=== PATIENT | female | born 1980 | race Caucasian/White ===

== ENCOUNTER → 2023-12-24 | Emergency (ER) | payer OTHER ==
[~2023-12-24] MED LIST: LIDOCAINE 1% 20 ML MDV ONE; LORAZEPAM 1 MG TABLET ONE; NA CHLORIDE 0.9% 1,000 ML ONE
--- OUTSIDE RECORDS SUMMARY | 2023-12-24 01:13 | XMS REPORT | Continuity of Care Document ---
Author Name Unknown Address [address] [facility]. [address] [place] [address] [facility] Address [address] [facility] [address] [place] [address] Care Team Providers Care Level Vial Inside Grinder Name Role Phone Megan Mercado Attending Clinician Unavailable GC_GCEXP_Monis_K Attending Clinician Unavailable Steven Jaramillo Attending Clinician Unavailab DR CORNELIUS Shen Attending Clinician UnavailBRITTA Jordan Attending Clinician Unavailable DAMARIS BEAULIEU Attending Clinician Unavailable GC_GCEXP_Monis_K Admitting Clinician Unavailable Ananda Cheek Admitting Clinician Unavailable DR CORNELIUS FISCHER Admitting Clinician UnavailBRITTA Jordan Admitting Clinician Unavailable DAMARIS BEAULIEU Admitting Clinician Unavailable Payers Payer Name Policy Type Policy Number Effective Date Expirati on Date Source Problems Condition Name Condition Details Condition Category Status Onset Date Resolution Date Last Treatment Date Treating Clinician Comments Source [id number] Mixed hyperlipid emia Problem [facility] [id number] Smokes 1 pack of cigarettes per day Problem [facility] [id number] Moderate major depression Problem [facility] [id number] Bipolar 2 disorder Problem [facility] [id number] Symptomati c cholelithi asis Problem [facility] [id number] COPD without exacerbati on Problem [facility] [id number] Other chronic pain Problem [facility] Allergies, Adverse Reactions, Alerts Allergy Name Allergy Type Status Severity Reaction(s) Onset Date Inactive Date Treating Clinician Comments Source No Known Allergie s DA Active U 05-17 00:00: 00 [facility] hydrocod one hydrocod one Active Unknown [facility] Social History Social Habit Start Date Stop Date Quantity Comments Source History of Tobacco Use Current Smoker [facility] Sex Assigned At [facility] Smoking Status Start Date Stop Date Source Current Smoker 2023-12-17 00:00:00 [facility] Medications Ordered Medication Name Filled Medication Name Start Date Stop Date Current Medication? Ordering Clinician Indication Dosage Frequency Signature (SIG) Comments Components Source predniSONE 10 MG predniSONE 10 MG 12-17 00:00: 00 No 1{table t} QD predniSONE 10 MG Naproxen 500 MG Naproxen 500 MG 12-17 00:00: 00 No BID Naproxen 500 MG Atorvastati n Calcium 10 MG Atorvastati n Calcium 10 MG No Atorvastat in Calcium 10 MG Propranolol HCl 10 MG Propranolol HCl 10 MG No 1{table t} QD Propranolo l HCl 10 MG tiZANidine HCl 4 MG tiZANidine HCl 4 MG No tiZANidine HCl 4 MG Mirtazapine 30 MG Mirtazapine 30 MG No Mirtazapin e 30 MG Sertraline HCl 50 MG Sertraline HCl 50 MG No Sertraline HCl 50 MG Ventolin HFA 108 (90 Base) MCG/ACT Ventolin HFA 108 (90 Base) MCG/ACT No Ventolin HFA 108 (90 Base) MCG/ACT Xarelto 20 MG Xarelto 20 MG No Xarelto 20 MG Mirtazapine 30 MG Mirtazapine 30 MG No Mirtazapin e 30 MG hydroCHLORO thiazide 12.5 MG hydroCHLORO thiazide 12.5 MG No hydroCHLOR Othiazide 12.5 MG Sertraline HCl 50 MG Sertraline HCl 50 MG No Sertraline HCl 50 MG OXcarbazepi ne 300 MG OXcarbazepi ne 300 MG No OXcarbazep ine 300 MG Atorvastati n Calcium 10 MG Atorvastati n Calcium 10 MG No Atorvastat in Calcium 10 MG Ventolin HFA 108 (90 Base) MCG/ACT Ventolin HFA 108 (90 Base) MCG/ACT No Ventolin HFA 108 (90 Base) MCG/ACT tiZANidine HCl 4 MG tiZANidine HCl 4 MG No tiZANidine HCl 4 MG Lidocaine 5 % Lidocaine 5 % No Lidocaine 5 % Xarelto 20 MG Xarelto 20 MG No Xarelto 20 MG Mirtazapine 30 MG Mirtazapine 30 MG No Mirtazapin e 30 MG hydroCHLORO thiazide 12.5 MG hydroCHLORO thiazide 12.5 MG No hydroCHLOR Othiazide 12.5 MG Sertraline HCl 50 MG Sertraline HCl 50 MG No Sertraline HCl 50 MG OXcarbazepi ne 300 MG OXcarbazepi ne 300 MG No OXcarbazep ine 300 MG Atorvastati n Calcium 10 MG Atorvastati n Calcium 10 MG No Atorvastat in Calcium 10 MG Ventolin HFA 108 (90 Base) MCG/ACT Ventolin HFA 108 (90 Base) MCG/ACT No Ventolin HFA 108 (90 Base) MCG/ACT tiZANidine HCl 4 MG tiZANidine HCl 4 MG No tiZANidine HCl 4 MG Lidocaine 5 % Lidocaine 5 % No Lidocaine 5 % Xarelto 20 MG Xarelto 20 MG No Xarelto 20 MG Mirtazapine 30 MG Mirtazapine 30 MG No Mirtazapin e 30 MG hydroCHLORO thiazide 12.5 MG hydroCHLORO thiazide 12.5 MG No hydroCHLOR Othiazide 12.5 MG Sertraline HCl 50 MG Sertraline HCl 50 MG No Sertraline HCl 50 MG OXcarbazepi ne 300 MG OXcarbazepi ne 300 MG No OXcarbazep ine 300 MG Atorvastati n Calcium 10 MG Atorvastati n Calcium 10 MG No Atorvastat in Calcium 10 MG Ventolin HFA 108 (90 Base) MCG/ACT Ventolin HFA 108 (90 Base) MCG/ACT No Ventolin HFA 108 (90 Base) MCG/ACT tiZANidine HCl 4 MG tiZANidine HCl 4 MG No tiZANidine HCl 4 MG Lidocaine 5 % Lidocaine 5 % No Lidocaine 5 % Xarelto 20 MG Xarelto 20 MG No Xarelto 20 MG Mirtazapine 30 MG Mirtazapine 30 MG No Mirtazapin e 30 MG hydroCHLORO thiazide 12.5 MG hydroCHLORO thiazide 12.5 MG No hydroCHLOR Othiazide 12.5 MG Sertraline HCl 50 MG Sertraline HCl 50 MG No Sertraline HCl 50 MG OXcarbazepi ne 300 MG OXcarbazepi ne 300 MG No OXcarbazep ine 300 MG Atorvastati n Calcium 10 MG Atorvastati n Calcium 10 MG No Atorvastat in Calcium 10 MG Ventolin HFA 108 (90 Base) MCG/ACT Ventolin HFA 108 (90 Base) MCG/ACT No Ventolin HFA 108 (90 Base) MCG/ACT tiZANidine HCl 4 MG tiZANidine HCl 4 MG No tiZANidine HCl 4 MG Lidocaine 5 % Lidocaine 5 % No Lidocaine 5 % Xarelto 20 MG Xarelto 20 MG No Xarelto 20 MG Lidocaine 5 % Lidocaine 5 % No Lidocaine 5 % tiZANidine HCl 4 MG tiZANidine HCl 4 MG No tiZANidine HCl 4 MG hydroCHLORO thiazide 12.5 MG hydroCHLORO thiazide 12.5 MG No hydroCHLOR Othiazide 12.5 MG Ventolin HFA 108 (90 Base) MCG/ACT Ventolin HFA 108 (90 Base) MCG/ACT No Ventolin HFA 108 (90 Base) MCG/ACT Xarelto 20 MG Xarelto 20 MG No Xarelto 20 MG OXcarbazepi ne 300 MG OXcarbazepi ne 300 MG No OXcarbazep ine 300 MG Sertraline HCl 50 MG Sertraline HCl 50 MG No Sertraline HCl 50 MG Mirtazapine 30 MG Mirtazapine 30 MG No Mirtazapin e 30 MG Atorvastati n Calcium 10 MG Atorvastati n Calcium 10 MG No Atorvastat in Calcium 10 MG Lidocaine 5 % Lidocaine 5 % No Lidocaine 5 % tiZANidine HCl 4 MG tiZANidine HCl 4 MG No tiZANidine HCl 4 MG hydroCHLORO thiazide 12.5 MG hydroCHLORO thiazide 12.5 MG No hydroCHLOR Othiazide 12.5 MG Ventolin HFA 108 (90 Base) MCG/ACT Ventolin HFA 108 (90 Base) MCG/ACT No Ventolin HFA 108 (90 Base) MCG/ACT Xarelto 20 MG Xarelto 20 MG No Xarelto 20 MG OXcarbazepi ne 300 MG OXcarbazepi ne 300 MG No OXcarbazep ine 300 MG Sertraline HCl 50 MG Sertraline HCl 50 MG No Sertraline HCl 50 MG Mirtazapine 30 MG Mirtazapine 30 MG No Mirtazapin e 30 MG Atorvastati n Calcium 10 MG Atorvastati n Calcium 10 MG No Atorvastat in Calcium 10 MG Lidocaine 5 % Lidocaine 5 % No Lidocaine 5 % tiZANidine HCl 4 MG tiZANidine HCl 4 MG No tiZANidine HCl 4 MG hydroCHLORO thiazide 12.5 MG hydroCHLORO thiazide 12.5 MG No hydroCHLOR Othiazide 12.5 MG Ventolin HFA 108 (90 Base) MCG/ACT Ventolin HFA 108 (90 Base) MCG/ACT No Ventolin HFA 108 (90 Base) MCG/ACT Xarelto 20 MG Xarelto 20 MG No Xarelto 20 MG OXcarbazepi ne 300 MG OXcarbazepi ne 300 MG No OXcarbazep ine 300 MG Sertraline HCl 50 MG Sertraline HCl 50 MG No Sertraline HCl 50 MG Mirtazapine 30 MG Mirtazapine 30 MG No Mirtazapin e 30 MG Atorvastati n Calcium 10 MG Atorvastati n Calcium 10 MG No Atorvastat in Calcium 10 MG Lidocaine 5 % Lidocaine 5 % No Lidocaine 5 % tiZANidine HCl 4 MG tiZANidine HCl 4 MG No tiZANidine HCl 4 MG hydroCHLORO thiazide 12.5 MG hydroCHLORO thiazide 12.5 MG No hydroCHLOR Othiazide 12.5 MG Ventolin HFA 108 (90 Base) MCG/ACT Ventolin HFA 108 (90 Base) MCG/ACT No Ventolin HFA 108 (90 Base) MCG/ACT Xarelto 20 MG Xarelto 20 MG No Xarelto 20 MG OXcarbazepi ne 300 MG OXcarbazepi ne 300 MG No OXcarbazep ine 300 MG Sertraline HCl 50 MG Sertraline HCl 50 MG No Sertraline HCl 50 MG Mirtazapine 30 MG Mirtazapine 30 MG No Mirtazapin e 30 MG Atorvastati n Calcium 10 MG Atorvastati n Calcium 10 MG No Atorvastat in Calcium 10 MG hydroCHLORO thiazide 12.5 MG hydroCHLORO thiazide 12.5 MG No hydroCHLOR Othiazide 12.5 MG OXcarbazepi ne 300 MG OXcarbazepi ne 300 MG No OXcarbazep ine 300 MG Immunizations Ordered Immunization Name Filled Immunization Name Date Status Comments Source Fluarix (IIV4) - SDS - 0.5mL Fluarix (IIV4) - SDS - 0.5mL Unknown Completed [facility] Fluarix (IIV4) - SDS - 0.5mL Fluarix (IIV4) - SDS - 0.5mL Unknown Completed [facility] Fluarix (IIV4) - SDS - 0.5mL Fluarix (IIV4) - SDS - 0.5mL Unknown Completed [facility] Fluarix (IIV4) - SDS - 0.5mL Fluarix (IIV4) - SDS - 0.5mL Unknown Completed [facility] Fluarix (IIV4) - SDS - 0.5mL Fluarix (IIV4) - SDS - 0.5mL Unknown Completed [facility] Fluarix (IIV4) - SDS - 0.5mL Fluarix (IIV4) - SDS - 0.5mL Unknown Completed [facility] Fluarix (IIV4) - SDS - 0.5mL Fluarix (IIV4) - SDS - 0.5mL Unknown Completed [facility] Fluarix (IIV4) - SDS - 0.5mL Fluarix (IIV4) - SDS - 0.5mL Unknown Completed [facility] Fluarix (IIV4) - SDS - 0.5mL Fluarix (IIV4) - SDS - 0.5mL Unknown Completed [facility] Vital Signs Vital Name Observation Time Observation Value Comments Andie brandon height 2023-12-17 10:20:00 67.5 [in_i] Comm on [facility] weight 2023-12-17 10:20:00 223 [lb_av] Comm on [facility] temperature 2023-12-17 10:20:00 98.2 [degF] Com mon [facility] bmi 2023-12-17 10:20:00 34.41 kg/m2 Comm on [facility] oximetry 2023-12-17 10:20:00 97 % Commo n [facility] respiratory rate 2023-12-17 10:20:00 16 /min [facility] blood pressure systolic 2023-12-17 10:20:00 133 mm[Hg] [facility] blood pressure diastolic 2023-12-17 10:20:00 80 mm[Hg] [facility] height 2023-11-25 08:00:00 67.5 [in_i] Comm on [facility] weight 2023-11-25 08:00:00 230 [lb_av] Comm on [facility] bmi 2023-11-25 08:00:00 35.49 kg/m2 Comm on [facility] height 2023-09-23 10:20:00 67.5 [in_i] Comm on [facility] weight 2023-09-23 10:20:00 229 [lb_av] Comm on [facility] temperature 2023-09-23 10:20:00 97.3 [degF] Com mon [facility] bmi 2023-09-23 10:20:00 35.33 kg/m2 Comm on [facility] oximetry 2023-09-23 10:20:00 98 % Commo n [facility] respiratory rate 2023-09-23 10:20:00 17 /min [facility] blood pressure systolic 2023-09-23 10:20:00 138 mm[Hg] [facility] blood pressure diastolic 2023-09-23 10:20:00 82 mm[Hg] [facility] Encounters Start Date/Time End Date/Time Encounter Type Admission Type Attending [facility] Facility Care Department Encounter ID Source 2023-12-17 09:46:01 Outpatient Megan Mercado STLMLC STLMLC [id number] [facility] 2023-10-14 15:47:01 Outpatient Megan Mercado STLMLC STLMLC [id number] [facility] 2023-09-23 07:57:00 Outpatient Megan Mercado STLMLC STLMLC [id number] [facility] 2023-12-17 00:00:00 2023-12-17 00:00:00 OFFICE VISIT ESTAB PT LEVEL 3 STLMLC STLMLC [id number] [facility] 2023-12-03 00:00:00 2023-12-03 00:00:00 (WEB) STLMLC STLMLC [id number] [facility] 2023-11-25 00:00:00 2023-11-25 00:00:00 OFFICE VISIT ESTAB PT LEVEL 4 STLMLC STLMLC [id number] [facility] 2023-11-24 00:00:00 2023-11-24 00:00:00 (TEL) STLMLC STLMLC [id number] [facility] 2023-10-20 00:00:00 2023-10-20 00:00:00 (TEL) STLMLC STLMLC [id number] [facility] 2023-09-27 00:00:00 2023-09-27 00:00:00 (WEB) STLMLC STLMLC [id number] [facility] 2023-09-24 00:00:00 2023-09-24 00:00:00 (TEL) STLMLC STLMLC [id number] [facility] 2023-09-24 00:00:00 2023-09-24 00:00:00 (TEL) STLMLC STLMLC [id number] [facility] 2023-09-23 00:00:00 2023-09-23 00:00:00 OFFICE VISIT NEW PT LEVEL 4 STLMLC STLMLC [id number] [facility] 2023-08-29 00:00:00 2023-08-29 00:00:00 Outpatient GC_GCEXP_Mo nis_K [facility] [id number] [facility] 2023-05-17 21:27:00 2023-05-18 01:45:00 Emergency EM Steven Jaramillo [facility] ER [id number] [facility] Results Test Description Test Time Test Comments Results Result Co mments Source [id number] 01:59:00* Test Item Value Reference Range Interpretation Comme nts LIPASE (test code = LIP) 58 Units/L 73-393 L [id number] 01:59:00* Test Item Value Reference Range Interpretation Comme nts MAGNESIUM (test code = MAG) 1.7 MG/DL 1.8-2.4 L NT PRO-BRAIN NATRIURETIC [id number] 01:59:00* Test Item Value Reference Range Interpretation Comme nts NT PRO-BRAIN NATRIURETIC PEPTI (test code = PROBNP) 138 PG/ML 0-125 H Results of this assay method may be falsely depressed orelevated if patient is taking high doses of Biotin. CPK-MB [id number] 01:59:00* Test Item Value Reference Range Interpretation Comme nts CK (test code = CKT) 128 Units/L 26-192 N CKMB (test code = CKMBT) 1.0 NG/ML 0.0-3.6 N CKMB suggestive of non-AMI; MB Index is not reported. CKMB INDEX (test code = CKMBI) % 0.0-2.4 TROP-I HIGH [id number] 01:59:00* Test Item Value Reference Range Interpretation Comme nts TROP-I HIGH SENSITIVITY (test code = TROPIHS) 13 ng/L < 51 Results above 51 for females and 76 for males are consistent with IFCC Committee recommendations to use the 99th percentile of a normal population as a reference decision-limit. - The use of serial sampling and testing protocol is a recommended practive.- An elevated high sensitiveity troponin level alone is often not sufficient for diagnosis of myocardial infarction.- In order to distinguish acute elevations of high sensitivity troponin from other clinical conditions, the Fourth Coventry Definition of Myocardial Infarction stresses clinical assessment and demonstration of a rise and/or fall in serial troponin results above the upper reference limit.Results of this assay method may be falsely depressed orelevated if patient is taking high doses of Biotin. [id number] 01:59:00* Test Item Value Reference Range Interpretation Comme nts ALCOHOL (test code = ALC) < 3 MG/DL 0-10 N 0 - 10: Should b e interpreted as NEGATIVE. 11 - 50: None to mild euphoria. 51 - 100: Mild influence on vision and dark adaptation. 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 > 400: Fatalities reported. Results are for medical purposes only and not forlegal or employment evaluative purposes. BASIC METABOLIC [id number] 01:59:00* Test Item Value Reference Range Interpretation Comme nts SODIUM (test code = NA) 138 MMOL/L 133-145 N POTASSIUM (test code = K) 3.3 MMOL/L 3.6-5.2 L CHLORIDE (test code = CL) 102 MMOL/L 100-108 N CARBON DIOXIDE (test code = CO2) 24 MMOL/L 22-32 N GLUCOSE (test code = GLU) 104 MG/DL 65-99 H Results of this assay method may be falsely depressed orelevated if patient is taking sulfasalazine. BLOOD UREA NITROGEN (test code = BUN) 8 MG/DL 6-20 N GLOMERULAR FILTRATION RATE (test code = GFR) 71 58-135 N The Glomerular Filtration Rate is a calculated parameterbased on serum Creatinine, patient age and sex. GFR valuesless than 60 mL/min/1.73 square meters are indicative ofChronic Kidney Disease. Values less than 15 mL/min/1.73square meters indicate Kidney failure. The calculation forGFR is based on the CKD-EPI (2020) calculation. This formulais race indifferent and is the recommended formula for GFRby the National Kidney Foundation for Adults.The GFR will not calculate if the sex is unknown or if thepatient's age is <18 years. CREATININE (test code = CREAT) 1.02 MG/DL 0.60-1.00 H CALCIUM (test code = CA) 9.5 MG/DL 8.7-10.5 N PROTHROMBIN [id number] 23:01:00* Test Item Value Reference Range Interpretation Comme nts PROTHROMBIN TIME PATIENT (test code = PTP) 25.1 SECONDS 9.6-12.3 HH INTERNATIONAL NORMAL RATIO (test code = INR) 2.32 Recommended INR range (warfarin therapy): 2.0 - 3.0INR (International Normalized Ratio) should beused when interpreting oral anticoaglulant therapy. For atrial fibrillation and treatment orprevention of deep vein thrombosis. Patients with Palmaz-Kareen stent *: 2.0 - 3.0 Patients with mechanical heart valve *: 2.5 - 3.5 Patients with flex-stent *: 3.0 - 4.0(*) = ruching machine operator's suggested range Is patient on anticoagulants? No AnticoagulantsD-DIMER [id number] 23:01:00 * Test Item Value Reference Range Interpretation Comme nts D-DIMER QUANT (test code = DDIMER) < 215 FEUng/mL less than 500 * Cut-off: Less than or equal to 500 ng/mL Results of the D-Dimer test should always be interpretedin conjunction with the patient's medical history, clinicalpresentation, and other findings. Clinical diagnosis shouldnot be based on the results of this assay alone. Specimens from patients who have received monoclonalantibody for diagnosis or therapy, may contain anti-mouseantibody (HAMA). HAMA may interfere with this assay. Is patient on anticoagulants? No AnticoagulantsCV CALL [id number] 23:01:00* Test Item Value Reference Range Interpretation Comme nts CV CALL COAG (test code = CVCG) Called Results called t o and read back by SKYLA SCHNEIDER;.for analyte(s): PT .at 230005/17/23 by RADAMES. Is patient on anticoagulants? No AnticoagulantsDRUG OF ABUSE SCREEN URINE 2023-05-17 22:54:00* Test Item Value Reference Range Interpretation Comments UR COCAINE (test code = COCAU) NEGATIVE NEGATIVE UR MDMA (test code = MDMAQLU) NEGATIVE NEGATIVE UR CANNABINOIDS (test code = CANU) NEGATIVE NEGATIVE UR AMPHETAMINE (test code = AMPHU) NEGATIVE NEGATIVE UR BARBITURATE QUAL (test code = BARBQLU) NEGATIVE NEGATIVE UR BENZODIAZEPINE (test code = BENZU) NEGATIVE NEGATIVE UR OPIATES QUAL (test code = OPIAQLU) NEGATIVE NEGATIVE UR PHENCYCLIDINE (PCP) (test code = PHENCU) NEGATIVE NEGATIVE Urine Drug Abuse Screen provides preliminary results thatmay be confirmed by alternate methods (i.e., GC/MS) at [facility]. Results of screen may not be usedin criminal justice, job performance or professionalcredential review, or custody issues. Negative [place] Level ng/ml ----- Cocaine 300 Methamphetamine (Ecstacy) 500 Cannabinoids (THC) 50 Amphetamine 1000 Barbiturates 200 Benzodiazepines 200 Opiates 300 Phencyclidine (PCP) 25 UR HCG [id number] 22:39:00* Test Item Value Reference Range Interpretation Comme nts UR HCG QUAL (test code = HCGQLU) NEGATIVE NEGATIVE False negatives may occur when levels of hCGare below 20 mIU/ml. When is still suspected, a new specimenshould be obtained after 48 hours and re-tested.If waiting 48 hours is not medically advisable,the test result should be confirmed using aquantitative hCG assay. CBC W/AUTO [id number] 22:36:00* Test Item Value Reference Range Interpretation Comme nts WHITE BLOOD CELL (test code = WBC) 11.88 x10 3/uL 4.80-10.80 H RED BLOOD CELL (test code = RBC) 4.47 x10 6/uL 4.2-5.4 N HEMOGLOBIN (test code = HGB) 15.4 G/DL 12.0-16.0 N HEMATOCRIT (test code = HCT) 42.0 % 37-47 N MEAN CELL VOLUME (test code = MCV) 94.0 FL 81-99 N MEAN CELL HGB (test code = MCH) 34.5 PG 27-31 H MEAN CELL HGB CONCENTRATION (test code = MCHC) 36.7 G/DL 33-37 N RED CELL DISTRIBUTION WIDTH (test code = RDW) 13.3 % 11.5-14.5 N PLATELET COUNT (test code = PLT) 311 x10 3/uL 150-450 N MEAN PLATELET VOLUME (test code = MPV) 10.9 FL 7.4-10.4 H NEUTROPHIL % (test code = NT%) 66.4 % 42-86 N IMMATURE GRANULOCYTE % (test code = IG%) 0.3 % 0.0-2.0 N LYMPHOCYTE % (test code = LY%) 27.4 % 24-44 N MONOCYTE % (test code = MO%) 4.8 % 0.0-4.0 H EOSINOPHIL % (test code = EO%) 0.3 % 0.0-2.7 N BASOPHIL % (test code = BA%) 0.8 % 0.0-0.5 H NUCLEATED RBC % (test code = NRBC%) 0.0 % 0.0-0.0 N NEUTROPHIL # (test code = NT#) 7.90 x10 3/uL 1.8-7.7 H IMMATURE GRANULOCYTE # (test code = IG#) 0.04 x10 3/uL 0.00-0.03 H LYMPHOCYTE # (test code = LY#) 3.25 x10 3/uL 1.0-4.8 N MONOCYTE # (test code = MO#) 0.57 x10 3/uL 0.0-0.8 N EOSINOPHIL # (test code = EO#) 0.03 x10 3/uL 0.0-0.5 N BASOPHIL # (test code = BA#) 0.09 x10 3/uL 0.0-0.2 N NUCLEATED RBC # (test code = NRBC#) 0.0 X10 3/uL 0.0-0.2 N - XR CHEST 1 [id number] 22:16:00 [facility] 1980 Sex: FPatient Name: PREMA MUSTAFA Unit No: [id number] EXAMS: CPT CODE: [id number] XR CHEST 1 V 30093 Reason: syncope EXAMINATION: - XR CHEST 1 V LOCATION: H101 INDICATION/CLINICAL HISTORY: syncope COMPARISON: None. TECHNIQUE: AP view of the chest. FINDINGS: LINES/DEVICE:None. CARDIOMEDIASTINAL SILHOUETTE: Cardiac silhouette is normal in size. LUNGS/PLEURA: Lungs are clear without pneumothorax or pleural effusion. UPPER ABDOMEN: Unremarkable. BONE/SOFT TISSUE: No acute fractures demonstrated. IMPRESSION: No acute cardiopulmonary findings. at 2216 Reported and signed by: Jigna Gallegos MD CC: rAtemio SERNA Technologist: Hever Burns RT Trscrpt Dt/ (2215)[id number] Orig Print D/T: S: 05/17/2023 (2218) [facility] NAME: PREMA MUSTAFA [address] PHYS: Steven Chang MD [facility] [place] [address] : 1980 AGE: 42 SEX: F LOC: Mary GraceGloriaYULIA PHONE #: [phone] EXAM DATE: 05/17/2023 STATUS: PRE ER FAX #: RAD NO: DC Dt: PAGE 1 Signed Report- CT HEAD/BRAIN W/O [id number] 22:12:00 [facility] : 1980 Sex: FPatient Name: PREMA MUSTAFA Unit No: [id number] EXAMS: CPT CODE: [id number] CT HEAD/BRAIN W/O CONT [id number] Reason: syncope/dizziness EXAM: - CT HEAD/BRAIN W/O CONT LOCATION: H101 CLINICAL HISTORY/INDICATION: syncope/dizziness TECHNIQUE: Helical CT acquisition of the head was obtained without IV contrast. Images were reconstructed in the axial, sagittal and coronal planes. This examination was performed according to our departmental dose optimization program, which includes automated exposure control, adjustment of the mA and/or kV according to patient size, and/or use of iterative reconstruction technique. COMPARISON: None FINDINGS: VENTRICLES: Appropriate for age. No hydrocephalus. PARENCHYMA: No CT evidence of acute large territorial infarct, parenchymal hemorrhage or mass effect. 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 EXTRA AXIAL SPACE: No subarachnoid hemorrhage, epidural hematoma or subdural hematoma. SCALP: Unremarkable. BONES: No skull fractures or aggressive calvarial lesions. PARTIALLY IMAGED FACE /PARANASAL SINUSES: Paranasal sinuses are clear. MASTOID AIR CELLS: No effusion. IMPRESSION: 1. No CT evidence of acute intracranial process. at 2212 Reported and signed by: Jigna Gallegos MD CC: Artemio Minaya Technologist: Jessica Ritter CT Trscrpt Dt/ (2211)[id number].[email or web address] Orig Print D/T: S: 05/17/2023 (2216) CTDI: DLP: [facility] NAME: PREMA MUSTAFA [address] [facility] PHYS: [place] [address] : 1980 AGE: 42 SEX: F LOC: KODY PHONE #: [phone] EXAM DATE: 05/17/2023 STATUS: PRE ER FAX #: RAD NO: DC Dt: PAGE 1 Signed ReportXR LUMBAR SPINE (AP/LATERAL)2019-09-03 15:04:54Procedure: XR LUMBAR SPINE (AP/LATERAL)Order Date: 09/03/2019 1:29 PMOrdering Provider: CHRISTIAN COOKClinical Indication: [id number]: Low back painComparison: NoneFindings:There is no acute fracture or subluxation.Vertebral body heights are maintained.All degenerative disc space height loss within the mid and lower lumbar spine.No significant facet arthrosis.There is no appreciable scoliosis.There areno pars defects on oblique views.There are no lytic or sclerotic lesions.The sacroiliac joints are normal.Impression:1. Negative Three-view exam of the lumbar spine.2. Lumbar spondylosis as above.This final report was electronically signed by Dr Dunia Santos MD 09/03/20192:58 PMDictated By: DUNIA SANTOSDate: 09/03/2019 14:58 [id number] 19:23:00* Test Item Value Reference Range Interpretation Comme nts Protime (test code = PT) 10.7 seconds 9.0-11.9 INR (test code = INR) 1.0 0.9-1.1 INR results are intended ONLY to monitor Oral Anticoagulant therapy in stablized patients. The INR Therapeutic Range is 2.0 - 3.0 Patients with a mechanical heart, the INR Range is 2.5 - 3.5 [facility] WITH [id number] 19:10:00* Test Item Value Reference Range Interpretation Comme nts Color (test code = UCOLR) YELLOW Clarity (test code = UCLAR) CLOUDY Glucose (test code = UGLUC) NEGATIVE NEGATIVE N Bilirubin (test code = UBILI) NEGATIVE NEGATIVE N Ketones (test code = UKET) NEGATIVE NEGATIVE N Specific Gilbert (test code = USPGR) 1.015 1.005-1.030 A Blood (test code = UBLD) TRACE-INTACT NEGATIVE A PH (test code = UPH) 7.0 4.5-8.0 A Protein (test code = UPROT) NEGATIVE NEGATIVE N Urobilinogen (test code = U UROB) 0.2 >0.2 N Nitrite (test code = UNITR) POSITIVE NEGATIVE A Leukocyte Esterase (test cod e = ULEUK) TRACE NEGATIVE A WBC (test code = WBCUR) 5-10 0-5 A RBC (test code = RBCUR) 5-10 0-5 A Epithial Cells (test code = U EPI) 0-5 0-10 A Mucous (test code = UMUC) None Seen None Seen N Bacteria (test code = UBACT) 4+ None Seen,Trace A [facility] [place] (HEMOGRAM ONLY)2017-02-21 19:10:00* Test Item Value Reference Range Interpretation Comme nts WBC (test code = WBC) 14.4 k/ul 4.8-10.8 H RBC (test code = RBC) 4.31 Millions/ul 4.20-5.40 Hemoglobin (test code = HGB) 14.0 gm/dl 12.0-14.0 Hematocrit (test code = HCT) 41.3 % 37.0-47.0 MCV (test code = MCV) 95.8 fL 81.0-99.0 MCH (test code = MCH) 32.5 pg 27.0-31.0 H MCHC (test code = MCHC) 34.0 gm/dl 33.0-37.0 RDW (test code = RDWVC) 13.6 % 11.5-14.5 Platelet (test code = PLT) 228 10\S\3/ul 130-400 MPV (test code = MPV) 8.6 fL 7.4-10.4 THIS IS A HEMOGRAM ONLY[facility] FallsAMYLASE, [id number] 19:07:00* Test Item Value Reference Range Interpretation Comme [facility] Amylase (test code = AMYL) 60 U/L 12-[address] [facility] FallsLIPASE, [id number] 19:07:00* Test Item Value Reference Range Interpretation Comme [facility] Lipase (test code = LIPA) 57 U/L 8-[address] [facility] FallsHEPATIC FUNCTION PANEL (LIVER)2017-02-21 19:07:00 * Test Item Value Reference Range Interpretation Comme [facility] T Protein (test code = TP) 8.0 gm/dl 5.1-8.7 Albumin (test code = ALB) 4.4 gm/dl 3.5-4.6 AST (SGOT) (test code = AST) 20 U/L 11-36 ALT (SGPT) (test code = ALT) 27 U/L 11-40 Alkaline Phos (test code = ALKP) 89 U/L 47-114 Total Bilirubin (test code = TBIL) 0.7 mg/dl 0.2-1.2 Direct Bilirubin (test code = DBIL) 0.3 mg/dl 0.0-0.3 Indirect Bilirubin (test cod e = IBIL) 0.4 mg/dl 0.0-1.1 [facility]-[id number] 19:07:00* Test Item Value Reference Range Interpretation Comme nts Glucose (test code = GLU) 116 mg/dl 75-110 H BUN (test code = BUN) 12.0 mg/dl 6.0-17.0 Creatinine (test code = CREA) 0.8 mg/dl 0.4-1.2 Sodium (test code = NA) 136 mmol/l 137-145 L Potassium (test code = K) 4.0 mmol/l 3.5-5.0 Chloride (test code = CL) 107 mmol/l 98-107 CO2 (test code = CO2) 18 mmol/l 22-30 L Calcium (test code = CALC) 9.1 mg/dl 8.4-10.2 EGFR if (test code = EGFRAA) >60 mL/min/1.73m\ S\2 EGFR if Non- (test code = EGFRNA) >60 mL/min/1.73m\ S\2 Estimated Glomerular Filtration Rate (eGFR) Reference Intervals Decision Points for 18 years and older and average body mass: >= 60 Does not exclude kidney disease. 30 - 59 Suggests moderate chronic kidney disease and indicates the need for further investigation including assessment of proteinuria and cardiovascular factors. < 30 Usually indicates a need for referral for assessment and management of chronic kidney failure. [facility]kinPREGNANC[facility] TEST, Serum [id number] 19:03:00* Test Item Value Reference Range Interpretation Comme nts (Serum) (test code = PREGS) Negative [facility] WITHOUT [id number] 10:41:00 * Test Item Value Reference Range Interpretation Comme nts Color (test code = UCOLR) YELLOW Clarity (test code = UCLAR) CLOUDY Glucose (test code = UGLUC) NEGATIVE NEGATIVE N Bilirubin (test code = UBILI) NEGATIVE NEGATIVE N Ketones (test code = UKET) NEGATIVE NEGATIVE N Specific Gilbert (test code = USPGR) <=1.005 1.005-1.03 0 A Blood (test code = UBLD) NEGATIVE NEGATIVE N PH (test code = UPH) 5.5 4.5-8.0 A Protein (test code = UPROT) NEGATIVE NEGATIVE N Urobilinogen (test code = U UROB) 0.2 >0.2 N Nitrite (test code = UNITR) NEGATIVE NEGATIVE N Leukocyte Esterase (test cod e = ULEUK) TRACE NEGATIVE A [facility]-[id number] 09:50:00* Test Item Value Reference Range Interpretation Comme nts Glucose (test code = GLU) 97 mg/dl 75-110 BUN (test code = BUN) 10.0 mg/dl 6.0-17.0 Creatinine (test code = CREA) 0.8 mg/dl 0.4-1.2 Sodium (test code = NA) 142 mmol/l 137-145 Potassium (test code = K) 3.5 mmol/l 3.5-5.0 Chloride (test code = CL) 108 mmol/l 98-107 H CO2 (test code = CO2) 21 mmol/l 22-30 L Calcium (test code = CALC) 8.6 mg/dl 8.4-10.2 T Protein (test code = TP) 7.3 gm/dl 5.1-8.7 Albumin (test code = ALB) 4.2 gm/dl 3.5-4.6 A/G Ratio (test code = AGRAT) 1.4 % 1.1-2.2 AST (SGOT) (test code = AST) 32 U/L 11-36 ALT (SGPT) (test code = ALT) 29 U/L 11-40 Alkaline Phos (test code = ALKP) 86 U/L 47-114 Total Bilirubin (test code = TBIL) 0.5 mg/dl 0.2-1.2 Globulin (test code = GLOBU) 3.1 gm/dl 2.3-3.5 Calcium, Corrected (test code = CALCCORR) 8.4 mg/dl 8.4-10.2 Various formulas exist for corrected serum calcium results, each yielding different values. This corrected result was based on the formula: Corrected Calcium = SerumCalcium + [0.8 * ( 4 - SerumAlbumin)] EGFR if (test code = EGFRAA) >60 mL/min/1.73m\ S\2 EGFR if Non- (test code = EGFRNA) >60 mL/min/1.73m\ S\2 Estimated Glomerular Filtration Rate (eGFR) Reference Intervals Decision Points for 18 years and older and average body mass: >= 60 Does not exclude kidney disease. 30 - 59 Suggests moderate chronic kidney disease and indicates the need for further investigation including assessment of proteinuria and cardiovascular factors. < 30 Usually indicates a need for referral for assessment and management of chronic kidney failure. [facility]-[place]otteLIPASE, [id number] 09:50:00* Test Item Value Reference Range Interpretation Comme nts Lipase (test code = LIPA) 115 U/L [address] [facility] FallsAMYLASE, [id number] 09:50:00* Test Item Value Reference Range Interpretation Comme nts Amylase (test code = AMYL) 61 U/L 12-[address] [facility] FallsCB WITH AUTO [id number] 09:40:00* Test Item Value Reference Range Interpretation Comme nts WBC (test code = WBC) 12.1 k/ul 4.8-10.8 H RBC (test code = RBC) 4.24 Millions/ul 4.20-5.40 Hemoglobin (test code = HGB) 13.8 gm/dl 12.0-14.0 Hematocrit (test code = HCT) 40.3 % 37.0-47.0 MCV (test code = MCV) 94.9 fL 81.0-99.0 MCH (test code = MCH) 32.5 pg 27.0-31.0 H MCHC (test code = MCHC) 34.3 gm/dl 33.0-37.0 RDW (test code = RDWVC) 13.1 % 11.5-14.5 Platelet (test code = PLT) 227 10\S\3/ul 130-400 MPV (test code = MPV) 8.6 fL 7.4-10.4 NE% (test code = NE) 53.1 % 42.0-75.0 LY% (test code = LY) 37.6 % 13.0-42.0 MO% (test code = MO) 6.8 % 4.0-14.0 EO% (test code = EO) 1.9 % 1.0-3.0 BA% (test code = BA) 0.6 % 1.0-3.0 L NRBC, Auto (test code = NRBC_AUTO) 0 [facility]O [facility] Date/Time Note Provider Source 2023-05-17 21:47:00 [id number]:47:00 [facility] ([facility]OR A [facility]EMERGENCY PROVIDER REPORTREPORT#:[id number] REPORT STATUS: SignedDATE:05/17/23 TIME: 2146 PATIENT: PREMA MUSTAFA UNIT #: [id number]#: [id number] ROOM/BED:AGE: 42 SEX: F PCP PHYS: Ananda Cheek DOSERVICE AUTHOR: Artemio Titus * ALL edits or amendments must be made on the electronic/computer document * Artemio Titus 05/17/232146:HPI-Syncope Free Text HPI NotesFree Text HPI NotesPatient is a 42-year-old female lives alone reports that at approximately 1500 hrs. she lost consciousness and woke up 6 hours later on the floor denies recentillness URI GI integumentary. Does report that she has dysuria frequency urgency GeneralConfirmed Patient YesPatient Type New patientInitial Greet Date/Time 05/17/23ssumed Care at Time 212605/17/23 PresentationChief Complaint Lost consciousnessSyncope Description Single episodeOnset of Sx (Nursing) Date: 05/17/23 Time: 1500Last Known Well Time 1500 Date 05/17/23Hx Obtained From Patient)( Onset Occurred SuddenRelieved by Nothing ContextRecent Healthcare No recent doctor visitSimilar Sx Previous Yes Risk-Syncope Risk StratificationGlasgow Coma Score: Copyright Sir Naresh Vega Copyright Sir Naresh Vega Eye opening: (4) Spontaneous Verbal response: (5) Oriented Best motor response: (6) Obeys commands GCS Score: 15)( Coronary Artery Disease Known CAD, Smoking)( Thoracic Aortic Dissection Risk factors reviewed)( Pulmonary Embolism Previous PE Review of Systems Basic Review of SystemsBasic ROS HEM: No bleeding/bruising Focused Review of SystemsConstitutionalReports: Fatigue, Malaise. EyesDenies: Blurred bilat. Ears/Nose/ThroatDenies: Ear drainage bilat. RespiratoryDenies: Pleuritic pain, Shortness of breath, Wheezing. CardiovascularReports: Syncope. Denies: Chest pain. GIDenies: Abdominal pain, Vomiting. MusculoskeletalDenies: Myalgia, Neck pain, Thoracic pain. SkinDenies: Rash. NeurologicReports: Dizziness, Headache, Syncope. PsychiatricDenies: Homicidal ideation, Suicidal ideation. Past Medical History - AdultStated Complaint SOB-MUSCLE JBQX-JWAM-RAGCQLhirmpaezTnsjo Allergies:No Known Allergies (05/17/23) Physical Exam Vital SignsVital SignsFirst Documented: Result Date Time Pulse Ox 98 05/17 2127 B/P 122/84 05/17 2127 B/P Mean 96 05/17 2127 O2 Delivery Room air 05/17 2127 Temp 36.7 05/17 2127 Pulse 87 05/17 2127 Resp 16 05/17 2127 Last Documented: Result Date Time Pulse Ox 98 05/17 2127 B/P 122/84 05/17 2127 B/P Mean 96 05/17 2127 O2 Delivery Room air 05/17 2127 Temp 36.7 05/17 2127 Pulse 87 05/17 2127 Resp 16 05/17 2127 Review of Vital Signs Reviewed Basic Physical ExamBasic PE HEAD: Atraumatic/NC, EYES: PERRL, conj clear, ENT: Membranes moist, NECK: Supple, ABD: Soft/non-tender, UP EXT: No gross abnormal, SKIN: No rashes, warm/dry, PSYCH: NL thought content Focused PEGeneral/Const General/Const Awake, Alert, No acute distressMS Head Head Atraumatic, NormocephalicEyes Eyes PERRLResp/Chest Respiratory/Chest Breath sounds NL, Breath sounds = bilat, No respiratory distressCardiovascular Cardiovascular Heart rate NL, Regular rhythmAbdomen/GI Abdomen/GI Soft, Non-tenderMS Lower Extrem Lower Ext/Pelvis/MS Inspection NL, Full range of motion, No swellingSkin Skin Color NL, No rash, WarmNeurologic Neurologic Oriented X3, Speech NL, No motor deficits, No sensory deficitsPsychiatric Psychiatric Affect NL, Mood NL, Not suicidal, Not homicidal Interpretation Diagnostics Lab Results InterpretationResultsLaboratory Tests 05/17/232218:[Embedded Image Not Available]Laboratory Tests: 05/175 2219 Chemistry Sodium (133 - 145 MMOL/L) 138 Potassium (3.6 - 5.2 MMOL/L) 3.3 L Chloride (100 - 108 MMOL/L) 102 Carbon Dioxide (22 - 32 MMOL/L) 24 BUN (6 - 20 MG/DL) 8 Creatinine (0.60 - 1.00 MG/DL) 1.02 H Estimated GFR (MDRD) (58 - 135) 71 Glucose (65 - 99 MG/DL) 104 H Calcium (8.7 - 10.5 MG/DL) 9.5 Magnesium (1.8 - 2.4 MG/DL) 1.7 L Total Bilirubin (0.0 - 1.0 MG/DL) 0.9 Direct Bilirubin (0.0 - 0.3 MG/DL) 0.2 Indirect Bilirubin (0.0 - 0.7 MG/DL) 0.7 AST (15 - 37 Units/L) 20 ALT (30 - 65 Units/L) 26 L Alkaline Phosphatase (50 - 136 Units/L) 107 Creatine Kinase (26 - 192 Units/L) 128 CK-MB (CK-2) (0.0 - 3.6 NG/ML) 1.0 Troponin I High Sens (< 51 ng/L) 13 NT-Pro-B Natriuret Pep (0 - 125 PG/ML) 138 H Total Protein (6.4 - 8.2 G/DL) 7.8 Albumin (3.4 - 5.0 G/DL) 3.9 Globulin (1.5 - 3.8 G/DL) 3.9 H Albumin/Globulin Ratio (1.1 - 2.2) 1.0 L Lipase (73 - 393 Units/L) 58 L Coagulation PT (9.6 - 12.3 SECONDS) 25.1 *H INR 2.32 D-Dimer Quant (PE/DVT) (less than 500 FEUng/mL) < 215 Hematology WBC (4.80 - 10.80 x10 3/uL) 11.88 H RBC (4.2 - 5.4 x10 6/uL) 4.47 Hgb (12.0 - 16.0 G/DL) 15.4 Hct (37 - 47 %) 42.0 MCV (81 - 99 FL) 94.0 MCH (27 - 31 PG) 34.5 H MCHC (33 - 37 G/DL) 36.7 RDW Coeff of Jessi (11.5 - 14.5 %) 13.3 Plt Count (150 - 450 x10 3/uL) 311 MPV (7.4 - 10.4 FL) 10.9 H Neut % (Auto) (42 - 86 %) 66.4 Lymph % (Auto) (24 - 44 %) 27.4 [place] % (Auto) (0.0 - 4.0 %) 4.8 H Eos % (Auto) (0.0 - 2.7 %) 0.3 Baso % (Auto) (0.0 - 0.5 %) 0.8 H Eos # (Auto) (0.0 - 0.5 x10 3/uL) 0.03 Baso # (Auto) (0.0 - 0.2 x10 3/uL) 0.09 Abs Immat Gran (auto) (0.00 - 0.03 x10 3/uL) 0.04 H Absolute Neuts (auto) (1.8 - 7.7 x10 3/uL) 7.90 H Absolute Lymphs (auto) (1.0 - 4.8 x10 3/uL) 3.25 Absolute Monos (auto) (0.0 - 0.8 x10 3/uL) 0.57 Absolute Nucleated RBC (0.0 - 0.2 X10 3/uL) 0.0 Immature Gran % (0.0 - 2.0 %) 0.3 Nucleated RBC % (0.0 - 0.0 %) 0.0 Miscellaneous Miscellaneous Test Called Toxicology Urine Opiates Screen (NEGATIVE) NEGATIVE Ur Barbiturates Screen (NEGATIVE) NEGATIVE Ur Phencyclidine Scrn (NEGATIVE) NEGATIVE Ur Amphetamine Screen (NEGATIVE) NEGATIVE MDMA (NEGATIVE) NEGATIVE U Benzodiazepines Scrn (NEGATIVE) NEGATIVE Urine Cocaine Screen (NEGATIVE) NEGATIVE U Cannabinoids Screen (NEGATIVE) NEGATIVE Serum Alcohol (0 - 10 MG/DL) < 3 Urines Urine HCG, Qual (NEGATIVE) NEGATIVE Recent Impressions:CAT SCAN - CT HEAD/BRAIN W/O CONT 05/17 2145 Report Impression - Status: SIGNED Entered: 05/17/20232215 IMPRESSION: 1. No CT evidence of acute intracranial process.Impression By: MARVA IbrahimADIOLOGY - XR CHEST 1 V 05/17 2200 Report Impression - Status: SIGNED Entered: 05/17/20232218 IMPRESSION: No acute cardiopulmonary findings.Impression By: Grover Gallegos MD Lab Imaging StatementLaboratory radiographic studies reviewed and considered in the medical decision-making. Point of Care TestingUrinalysis Interpretation Urinalysis NLPulse Oximetry Pulse Ox % 96 On: Room air Interpretation Interpreted by me, Pulse oximetry normal Re-Evaluation MDM )( Re-Evaluation/Progress #1Time of Re-Eval 2306)( Re-Eval Status Unchanged ED CourseMedication(s) OrderedMedication(s) Ordered:Diagnostic Agents Sig/Kendrick Start time Last Medication Dose Route Stop Time Status Admin Iopamidol 0 .STK-MED ONE 05/18 0212 DC IV Electrolytic, Caloric, And Natasha Sig/Kendrick Start time Last Medication Dose Route Stop Time Status Admin Sodium Chloride 1,000 ML X1ED STA 05/17 2150 DC 05/17 IV 05/17 Differential Diagnosis)( Differential Diagnosis Acute coronary syndrome, Cerebrovascular accident, Closed head injury Patient Discharge Departure Vital Signs/ConditionVital SignsFirst Documented: Result Date Time Pulse Ox 98 05/17 2127 B/P 122/84 05/17 2127 B/P Mean 96 05/17 2127 O2 Delivery Room air 05/17 2127 Temp 36.7 05/17 2127 Pulse 87 05/17 2127 Resp 16 05/17 2127 Last Documented: Result Date Time Pulse Ox 98 05/17 2127 B/P 122/84 05/17 2127 B/P Mean 96 05/17 2127 O2 Delivery Room air 05/17 2127 Temp 36.7 05/17 2127 Pulse 87 05/17 2127 Resp 16 05/17 2127 All vital signs available at the time of this entry have been reviewed. Condition Stable Clinical ImpressionClinical ImpressionPrimary Impression: Syncope Pt/Provider Handoff Handoff NoteThis patient's care has been transferred to and accepted by [[facility]]. We discussed: the patient's chief complaint; labs and imaging that have been completed and those that are still pending; procedures that have been completed and those remaining to be done; any treatment provided and the patient's response to treatment; any significant change in condition; input from consultants if any; the treatment plan prior to the transfer of care. The accepting physician will follow up on all pending labs and imaging and make any necessary changes to the current impression and/or treatment plan. The acceptingphysician is now responsible for the patient's care and final disposition. Steven Jaramillo 05/17/23 2314:Interpretation Diagnostics ECG #1 InterpretationText/Dict NoteEKG done at 2217 shows normal sinus rhythm rate of 93. Normal axis. Normal intervals. No acute STEMI. No acute ST-T changes. Patient Discharge Departure Clinical ImpressionTime of Impression 0145 Disposition DecisionDischarge )( Discharged to Home ELOPED )( Time 0145 )( Date 05/18/23 at 2317 at 0516RPT #:[id number] OF REPORTEDEmergen department [id number]:47:00D.[id number] ilable for patient [id number]:17:58 [facility]
[2023-12-24 02:06] LABS: Specific Gravity 1.027 (1.005-1.030)
[2023-12-24 02:15] LABS: Barbiturates NEGATIVE (NEGATIVE); Benzodiazepines POSITIVE (NEGATIVE); Cocaine NEGATIVE (NEGATIVE); METHAMPHETAM NEGATIVE (NEGATIVE); Methadone NEGATIVE (NEGATIVE); Opiates NEGATIVE (NEGATIVE); Phencyclidine NEGATIVE (NEGATIVE); THC Cannibis NEGATIVE (NEGATIVE)
[2023-12-24 02:21] LABS: Absolute Lymphocytes (CBC) 3.1 K/uL (0.7-4.9); Hematocrit 39.1 % (36.0-45.0); Lymphocytes % 23.4 % (15.3-44.8); MCV 94.7 fL (80-100); MPV 9.3 fL (7.6-11.3); Platelets 182 thou/uL (152-406); RBC Red Blood Cell Count 4.13 M/uL (3.86-4.86)
[2023-12-24 02:22] LABS: Protime INR 1.18
[2023-12-24 02:36] LABS: Calcium Oxalate Crystals- Ur Few /HPF (None Seen); Specific Gravity 1.026 (1.005-1.030); Urine Bacteria 20-50 /HPF (<20); Urine Bilirubin NEGATIVE (Negative); Urine Blood 3+ (Negative); Urine Clarity Extremely Turbid (Clear); Urine Color Yellow (Yellow); Urine Glucose NEGATIVE (Negative); Urine Mucus 1+ /HPF (None Seen); Urine Protein TRACE (Negative); Urine RBC <5 /HPF (None Seen); Urine Urobilinogen 1+ (Normal)
[2023-12-24 02:37] LABS: ALT/SGPT 47 U/L (13-56); AST/SGOT 41 U/L (15-37); Albumin 2.9 g/dL (3.4-5.0); Alkaline Phosphatase 100 U/L (45-117); BUN Blood Urea Nitrogen 9 mg/dL (7-18); Bicarbonate 25 mEq/L (21-32); Bilirubin Direct 0.1 mg/dL (0-0.2); Bilirubin Indirect, Calculated 0.3 mg/dL (0.2-0.8); Bilirubin Total 0.4 mg/dL (0.2-1.0); Glomerular Filtration Rate 88 ml/min (=/>90); Glucose Level 117 mg/dL (74-106); Potassium 3.5 mEq/L (3.5-5.1); Protein, Total 6.9 g/dL (6.4-8.2); Sodium Level 139 mEq/L (136-145)
--- NOTE | 2023-12-24 03:43 | ER ---
Nurse's Notes [facility] [place] Name: Prema Mustafa Age: 43 yrs Sex: Female : 1980 Arrival Date: 12/24/2023 Time: 01:09 Bed 19 Private MD: Diagnosis: Propranolol overdose, Tegretol overdose, multiple substance overdose, laceration left hand, laceration left wrist, initial encounter, worsening depression with suicidal ideation and suicide attempt Presentation: 12/24 01:20 Chief complaint: Patient states: depressed with Suicidal attempt by cutting left wrist pf1 and left posterior hand,onset 1100 on 12/23/23 and patient stated took 30 tablets of Olanzipine 10mg, 30 tablets of Zoloft 100mg, 30 tablets of Propanolol 10mg and 30 tablets of Oxcarbazepine 300mg,onset 12/20/23. Patient stated is tired of being alone, feels like family does not care about her. 01:20 Coronavirus screen: Vaccine status: Patient reports being unvaccinated. Client denies pf1 travel out of the [place] in the last 14 days. At this time, the client does not indicate any symptoms associated with coronavirus-19. Ebola Screen: Patient negative for fever greater than or equal to 101.5 degrees Fahrenheit, and additional compatible Ebola Virus Disease symptoms. Initial Sepsis Screen: Does the patient meet any 2 criteria? HR > 90 bpm. No. Patient's initial sepsis screen is negative. Does the patient have a suspected source of infection? No. Patient's initial sepsis screen is negative. Risk Assessment: Do you want to hurt yourself or someone else? Patient reports desire/thoughts of hurting themselves or someone else. Provider notified. 01:20 Method Of Arrival: Ambulatory pf1 01:20 Acuity: LB 2 pf1 03:00 Onset of symptoms was December 23, 2023. km8 Historical: - Allergies: 01:54 No Known Allergies; pf1 - PMHx: 01:54 pulmonary embolism x 2 (2015; [place]; Bipolar disorder; pf1 - PSHx: 01:54 Ligation of fallopian tube; pf1 - Immunization history:: Adult Immunizations not up to date, Client reports having NOT received the Covid vaccine. Last tetanus immunization: > 10 years ago Flu vaccine is up to date. - Social history:: Smoking status: Patient reports the use of cigarette tobacco products, smokes one pack cigarettes per day. Patient/guardian denies using alcohol, street drugs. - Family history:: not pertinent. Screenin:21 [facility] ED Fall Risk Assessment (Adult) History of falling in the last 3 months, jj7 including since admission No falls in past 3 months (0 pts) Confusion or Disorientation No (0 pts) Intoxicated or Sedated No (0 pts) Impaired Gait No (0 pts) Mobility Assist Device Used No (0 pt) Altered Elimination No (0 pt) Score/Fall Risk Level 0 - 2 = Low Risk Oriented to surroundings, Maintained a safe environment, Educated pt \\T\\ family on fall prevention, incl call for assistance when getting out of bed. Abuse screen: Denies threats or abuse. Nutritional screening: No deficits noted. Tuberculosis screening: No symptoms or risk factors identified. Assessment: 01:21 General: Appears in no apparent distress. comfortable, Behavior is cooperative, jj7 appropriate for age, crying, flat. Pain: Complains of pain in lumbar area, left low back and right low back Quality of pain is described as Is chronic. Neuro: No deficits noted. Cardiovascular: Rhythm is sinus tachycardia. Respiratory: No deficits noted. 01:21 Derm: Skin Wound noted dorsum of left hand and palmar aspect of left wrist Wound is jj7 LACERATION. 01:42 Reassessment: Vince with Poison Control recommendations: cardiac monitoring, EKG, tox pf1 work up, liver function, test. Case # [id number]. 03:00 Reassessment: Patient appears in no apparent distress at this time. No changes from km8 previously documented assessment. Patient and/or family updated on plan of care and expected duration. Pain level reassessed. Patient is alert, oriented x 3, equal unlabored respirations, skin warm/dry/pink. 04:00 Reassessment: Patient appears in no apparent distress at this time. No changes from km8 previously documented assessment. Patient and/or family updated on plan of care and expected duration. Pain level reassessed. Patient is alert, oriented x 3, equal unlabored respirations, skin warm/dry/pink. Dr. Spring at bedside suturing pt's lacerations. 04:14 Reassessment: NURSE TO NURSE TO JAH JIANG. km8 04:42 Reassessment: Rosio from Poison Control checking on pt, no further instructions given. km8 05:00 Reassessment: Patient appears in no apparent distress at this time. No changes from km8 previously documented assessment. Patient and/or family updated on plan of care and expected duration. Pain level reassessed. Patient is alert, oriented x 3, equal unlabored respirations, skin warm/dry/pink. 06:00 Reassessment: Patient appears in no apparent distress at this time. No changes from 8 previously documented assessment. Patient and/or family updated on plan of care and expected duration. Pain level reassessed. Patient is alert, oriented x 3, equal unlabored respirations, skin warm/dry/pink. 07:00 Reassessment: Patient appears in no apparent distress at this time. No changes from kc6 previously documented assessment. Patient and/or family updated on plan of care and expected duration. Pain level reassessed. Patient is alert, oriented x 3, equal unlabored respirations, skin warm/dry/pink. 08:00 Reassessment: Patient appears in no apparent distress at this time. No changes from kc6 previously documented assessment. Patient and/or family updated on plan of care and expected duration. Pain level reassessed. Patient is alert, oriented x 3, equal unlabored respirations, skin warm/dry/pink. Psych: 01:21 [place] Suicide Severity Screening: In the past month, have you wished you were jj7 or wished you could go to sleep and not wake up? Patient responds "yes." Based off the client's responses additional C-SSRS screening is required. "In the past month, have you actually had any thoughts of killing yourself?" "In your lifetime, have you ever done anything, started to do anything, or prepared to do anything to end your life?" Patient responds "yes." Patient reports suicidal intent within 3 past months. Subjective: Patient's mood is sad, hopeless, Delusions are denied, Hallucinations are denied Having thoughts of suicide. Plan for suicide is TO TAKE PILLS. STATES SHE DID THAT FRIDAY AND IT DIDN'T WORK. Objective: Patient is cooperative, Speech is normal, Affect is flat, Patient has mutilated themselves by CUT TO LEFT WRIST AND TOP OF LEFT HAND. Interventions: Patient placed in hospital gown. Searched person for dangerous items. Urine collected and sent for urine drug test. Safety Checks: Personal items have been removed. Door is open. No visitors are present at this time. Pt denies substance abuse. 08:45 Commitment: Patient will be a voluntary commitment. kc6 Vital Signs: 01:20 BP 167 / 99; Pulse 105; Resp 16; Temp 98.8; Pulse Ox 99% on R/A; Weight 99.79 kg; pf1 Height 5 ft. 9 in. ; 04:15 BP 121 / 63; Pulse 83; Resp 16; Temp 98.8(TE); Pulse Ox 97% on R/A; km8 07:34 BP 127 / 70; Pulse 80; Resp 16 S; Pulse Ox 98% on R/A; kc6 01:20 Body Mass Index 32.49 (99.79 kg, 175.26 cm) pf1 ED Course: 12/23 03:45 Faxed patient info to initiate transfer to [facility]. 12/24 01:15 Patient arrived in ED. gm2 01:17 Brant Spring MD is Attending Physician. sp4 01:21 Patient has correct armband on for positive identification. Bed in low position. jj7 Patient is placed in psych hold. 01:30 Inserted saline lock: 20 gauge in right antecubital area, using aseptic technique. jj7 Blood collected. 01:52 Triage completed. pf1 01:54 Acetaminophen Sent. jj7 01:54 Basic Metabolic Panel Sent. jj7 01:54 CBC with Diff Sent. jj7 01:54 ETOH Level Sent. jj7 01:54 Hepatic Function Sent. jj7 01:54 PT-INR Sent. jj7 01:54 Test, Urine Sent. jj7 01:54 Ptt, Activated Sent. jj7 01:55 Salicylate Sent. jj7 01:55 Urinalysis w/ reflexes Sent. jj7 01:55 Urine Drug Screen Sent. jj7 03:00 Safety Checks: Personal items have been removed. The door is open or patient has been km8 placed in a hallway bed/chair. There are no family/friend visitors at this time Sitter present at this time. 03:00 Arm band placed on right wrist. km8 04:00 Safety Checks: Personal items have been removed. The door is open or patient has been km8 placed in a hallway bed/chair. There are no family/friend visitors at this time Sitter present at this time. 05:00 Safety Checks: Personal items have been removed. The door is open or patient has been km8 placed in a hallway bed/chair. There are no family/friend visitors at this time Sitter present at this time. 05:00 Contacted [facility] for transport of patient, accepted. ty 06:00 Safety Checks: Personal items have been removed. The door is open or patient has been km8 placed in a hallway bed/chair. There are no family/friend visitors at this time Sitter present at this time. 06:47 No provider procedures requiring assistance completed. 8 06:47 Provided Education on: transfer process. km8 07:00 Report received from JAH Aguilar. kc6 07:00 Patient is placed in psych hold. kc6 07:00 Sitter at bedside. Door closed. Noise minimized. Visitors limited. Lights dimmed. Warm 6 blanket given. 08:45 IV discontinued, intact, bleeding controlled, No redness/swelling at site. Pressure 6 dressing applied. Administered Medications: 03:05 Drug: LORazepam PO 2 mg PO once Route: PO; jj7 04:03 Follow up: Response: No adverse reaction [facility] 03:05 Drug: NS 0.9% IV 1000 ml IV at 1 bolus Per protocol; 1000 mL bolus Route: IV; Rate: 1 jj7 bolus; Site: right antecubital; 04:39 Follow up: IV Status: Completed infusion; IV Intake: 1000ml [facility] 04:38 Drug: Lidocaine Infiltration (1 %) 20 ml 20 ml Infiltration once; to bedside {Note: km8 given by Dr. Spring.} Volume: 20 ml; Route: Infiltration; Medication: 01:21 VIS not applicable for this client. jj7 Intake: 04:39 IV: 1000ml; Total: 1000ml. 8 Outcome: 03:42 ER care complete, transfer ordered by sp4 08:45 Transferred by ground EMS Transfer form completed. Note: pt to [facility] with [address] [facility] 08:45 Condition: good 08:45 Instructed on the need for transfer, [facility] 08:49 Patient left the ED. [facility] Signatures: Donya Kraft RN RN [facility] Tamika Pedraza RN RN jj7 Joana Hackett RN RN pf1 Brant Spring MD MD sp4 Rand Snow 2 Lauren Liu RN RN km8 Satya Shelton Corrections: (The following items were deleted from the chart) 02:01 01:55 T4 FREE+C.LAB.BRZ drawn and sent. jj7 EDMS 02:01 01:55 THYROID STIMULAT HORMONE+C.LAB.BRZ drawn and sent. j7 EDMS 04:19 04:14 Reassessment: NURSE TO NURSE TO . km8 km8 06:49 02 23:[address] [facility] spoke with Caren Simon for transfer ty ty 12/24 06:49 12/23 23:40 Contacted [facility] for transport of patient, accepted ty ty
--- NOTE | 2023-12-24 03:43 | EDPHYS ---
Physician Documentation [facility] Name: Prema Mustafa Age: 43 yrs Sex: Female : 1980 Arrival Date: 12/24/2023 Time: 01:09 Bed 19 Private MD: ED Physician Brant Spring HPI: 12/24 01:17 This 43 yrs old Female presents to ER via Unassigned with complaints of sp4 Suicidal Ideation, cutting. 03:36 43-year-old female presents with complaint of suicidal attempt via overdose also sp4 cutting in the wrist on the left side. Patient states she is feeling unwell because she feels rejected by her family. Patient has a history of bipolar disorder. Patient has history of pulmonary emboli she is on Xarelto. Patient states that she has lacerated her left wrist and left hand yesterday morning. On 12/20/2023 3 days ago patient has consumed 30 tablets of propranolol 10 mg, 30 tablets of Zoloft 100 mg, 30 tablets of olanzapine 10 mg, 30 tablets all Tegretol 300 mg. This was an overdose attempt. . Historical: - Allergies: 01:54 No Known Allergies; pf1 - PMHx: 01:54 pulmonary embolism x 2 (2015; [place]; Bipolar disorder; pf1 - PSHx: 01:54 Ligation of fallopian tube; pf1 - Immunization history:: Adult Immunizations not up to date, Client reports having NOT received the Covid vaccine. Last tetanus immunization: > 10 years ago Flu vaccine is up to date. - Social history:: Smoking status: Patient reports the use of cigarette tobacco products, smokes one pack cigarettes per day. Patient/guardian denies using alcohol, street drugs. - Family history:: not pertinent. ROS: 03:36 Constitutional: Negative for fever, chills, and weight loss, positive for suicidal sp4 ideation, positive for depression, positive suicide attempt, positive for laceration left wrist and left hand. Eyes: Negative for injury, pain, redness, and discharge, 03:36 All other systems are negative, Exam: 03:36 Constitutional: This is a well developed, well nourished patient who is awake, alert, sp4 and in no acute distress. Head/Face: Normocephalic, atraumatic. Eyes: Pupils equal round and reactive to light, extra-ocular motions intact. Lids and lashes normal. Conjunctiva and sclera are not injected. Cornea within normal limits. Periorbital areas with no swelling, redness, or edema. ENT: Nares patent. No nasal discharge, no septal abnormalities noted. Tympanic membranes are normal and external auditory canals are clear. Oropharynx with no redness, swelling, or masses, exudates, or evidence of obstruction, uvula midline. Mucous membranes moist. Neck: Trachea midline, no thyromegaly or masses palpated, and no cervical lymphadenopathy. Supple, full range of motion without nuchal rigidity, or vertebral point tenderness. Chest/axilla: Normal chest wall appearance and motion. Nontender with no deformity. No lesions are appreciated. Cardiovascular: Regular rate and rhythm with a normal S1 and S2. No gallops, murmurs, or rubs. Normal PMI, no JVD. No pulse deficits. Respiratory: Lungs have equal breath sounds bilaterally, clear to auscultation and percussion. No rales, rhonchi or wheezes noted. No increased work of breathing, no retractions or nasal flaring. Abdomen/GI: Soft, with normal bowel sounds. No distension or tympany. No guarding or rebound. No evidence of tenderness throughout. Back: No spinal tenderness. No costovertebral tenderness. Skin: Warm, dry with normal turgor. Normal color with no rashes, no lesions, and no evidence of cellulitis. MS/ Extremity: LeftPulses equal, no cyanosis. Neurovascular intact. Full, normal range of motion. 2 cm laceration left dorsal hand and 3 cm laceration palmar side of the wrist Neuro: Awake and alert, GCS 15, oriented to person, place, time, and situation. Cranial nerves II-XII grossly intact. Motor strength 5/5 in all extremities. Sensory grossly intact. Psych: Awake, alert, with orientation to person, place and time. Appears to have mild degree of depression 03:42 ECG was reviewed by the Attending Physician. EKG reveals normal sinus rhythm with a sp4 rate of 86, EKG time 0 216 Vital Signs: 01:20 BP 167 / 99; Pulse 105; Resp 16; Temp 98.8; Pulse Ox 99% on R/A; Weight 99.79 kg; pf1 Height 5 ft. 9 in. ; 04:15 BP 121 / 63; Pulse 83; Resp 16; Temp 98.8(TE); Pulse Ox 97% on R/A; km8 07:34 BP 127 / 70; Pulse 80; Resp 16 S; Pulse Ox 98% on R/A; kc6 01:20 Body Mass Index 32.49 (99.79 kg, 175.26 cm) pf1 Laceration: 04:13 Wound Repair of 3cm ( 1.2in ) subcutaneous laceration to palmar aspect of left wrist. sp4 Linear shaped.. Moderate contamination.. Distal neuro/vascular/tendon intact. Anesthesia: Wound infiltrated with 10 mls of 1% lidocaine. Wound prep: Moderate cleansing by me, Copious irrigation. Skin closed with 7 5-0 Prolene using interrupted sutures and sterile technique. Dressed with 4x4's, Kerlix, pressure dressing. Patient tolerated well. 04:13 Wound Repair of 1.5cm ( 0.6in ) subcutaneous laceration to dorsum of left hand. Linear sp4 shaped.. Moderate contamination.. Distal neuro/vascular/tendon intact. Anesthesia: Wound infiltrated with 5 mls of 1% lidocaine. Wound prep: Moderate cleansing by me, Copious irrigation. Skin closed with 5-0 Prolene using running sutures and sterile technique. Dressed with 4x4's, Kerlix, non-adherent dressing. Patient tolerated well. MDM: 01:20 Patient medically screened. sp4 03:42 Differential diagnosis: drug withdrawal. acute psychotic break, depression, psychosis sp4 secondary to non-compliance. Data reviewed: vital signs, nurses notes, old medical records, lab test result(s), EKG. 03:44 Consideration of Admission/Observation Escalation of care including sp4 admission/observation considered. Management of patient was discussed with the following: Air Brake Rigger: Accepting psychiatry. ED course: Patient is medically cleared for transfer to psychiatric institution. 12/24 01:20 Order name: Acetaminophen; Complete Time: 03:35 sp4 12/24 01:20 Order name: Basic Metabolic Panel; Complete Time: 03:35 sp4 12/24 01:20 Order name: CBC with Diff; Complete Time: 03:35 sp4 12/24 01:20 Order name: ETOH Level; Complete Time: 03:35 sp4 12/24 01:20 Order name: Hepatic Function; Complete Time: 03:35 sp4 12/24 01:20 Order name: PT-INR; Complete Time: 03:35 sp4 12/24 01:20 Order name: Test, Urine; Complete Time: 03:35 sp4 12/24 01:20 Order name: Ptt, Activated; Complete Time: 03:35 sp4 12/24 01:20 Order name: Salicylate; Complete Time: 03:35 sp4 12/24 01:20 Order name: Urinalysis w/ reflexes; Complete Time: 03:35 sp4 12/24 01:20 Order name: Urine Drug Screen; Complete Time: 03:35 sp4 12/24 02:02 Order name: T4 Free; Complete Time: 03:35 EDMS 12/24 02:02 Order name: Thyroid Stimulating Hormone; Complete Time: 03:35 EDMS 12/24 01:20 Order name: EKG; Complete Time: 01:20 sp4 12/24 01:20 Order name: EKG - Nurse/Tech; Complete Time: 03:08 sp4 12/24 01:20 Order name: IV Saline Lock; Complete Time: 01:54 sp4 12/24 01:20 Order name: Labs collected and sent; Complete Time: 01:54 sp4 12/24 01:20 Order name: Suicide Precautions; Complete Time: 01:54 sp4 12/24 01:20 Order name: Suicide Screening ([facility] [place]); Complete Time: 01:54 sp4 12/24 01:37 Order name: Dressing - Wound; Complete Time: 04:38 sp4 12/24 01:37 Order name: Gloves, Sterile; Complete Time: 03:08 sp4 12/24 01:37 Order name: Setup Suture Tray; Complete Time: 03:08 sp4 EC:42 Rate is 86 beats/min. Rhythm is regular, Normal Sinus Rhythm. QRS [place] is Normal. [place] sp4 interval is normal. QRS interval is normal. QT interval is normal. No Q waves. T waves are Normal. No ST changes noted. Clinical impression: Normal ECG. Interpreted by me. Reviewed by me. Administered Medications: 03:05 Drug: LORazepam PO 2 mg PO once Route: PO; jj7 04:03 Follow up: Response: No adverse reaction km8 03:05 Drug: NS 0.9% IV 1000 ml IV at 1 bolus Per protocol; 1000 mL bolus Route: IV; Rate: 1 jj7 bolus; Site: right antecubital; 04:39 Follow up: IV Status: Completed infusion; IV Intake: 1000ml km8 04:38 Drug: Lidocaine Infiltration (1 %) 20 ml 20 ml Infiltration once; to bedside {Note: km8 given by Dr. Spring.} Volume: 20 ml; Route: Infiltration; Disposition Summary: 12/24/23 03:42 Transfer Ordered Notes: Transfer Location: [facility] sp4 Reason: Higher level of care sp4 Condition: Stable sp4 Problem: new sp4 Symptoms: have improved sp4 Accepting Physician: Accepting psychiatrist(12/24/23 08:49) kc6 Diagnosis - Propranolol overdose, Tegretol overdose, multiple substance overdose, laceration sp4 left hand, laceration left wrist, initial encounter, worsening depression with suicidal ideation and suicide attempt Discharge Instructions: - Discharge Summary Sheet ty - Sutured Wound Care ty Forms: - Medication Reconciliation Form sp4 - SBAR form ty Signatures: Dispatcher [employer] EDDonya Medel RN RN kc6 Tamika Pedraza RN RN jj7 Joana Hackett RN RN pf1 Brant Spring MD MD sp4 Lauren Liu RN RN km8 Corrections: (The following items were deleted from the chart) 02:01 01:38 THYROID STIMULAT HORMONE+C.LAB.BRZ ordered. EDMS EDMS 02:01 01:38 T4 FREE+C.LAB.BRZ ordered. EDMS EDMS 08:49 03:42 Accepting psychiatrist sp4 kc6
[2023-12-24 09:05] VITALS: BP 127/70; TEMP 98.8; O2SAT 98
--- NOTE | 2023-12-25 16:10 | EKG ---
Test Date: 2023-12-24 Test Time: 02:16:11 [place]: [place]AK MEASUREMENT RESULTS: Intervals: Rate: 86 NJ: 138 QRSD: 80 QT: 342 QTc: 409 Summers: P: 37 NJ: 138 QRS: 9 T: 36 INTERPRETIVE STATEMENTS: Normal sinus rhythm Normal ECG No previous ECG available for comparison Electronically Signed On 12-25-23 16:05:21 SENIOR COST ACCOUNTANT by Rocael Stern
== END ==
LOC: ER 01:09
PROC: 0HQGXZZ Repair Left Hand Skin, External Approach (ICD-10-PCS; principal; 2023-12-24)
PROC: 0HQEXZZ Repair Left Lower Arm Skin, External Approach (ICD-10-PCS; 2023-12-24)
DX: T44.7X2A Poisoning by beta-adrenoreceptor antagonists, intentional self-harm, initial encounter (principal); T42.1X2A Poisoning by iminostilbenes, intentional self-harm, initial encounter; S61.412A Laceration without foreign body of left hand, initial encounter; S61.512A Laceration without foreign body of left wrist, initial encounter; X78.9XXA Intentional self-harm by unspecified sharp object, initial encounter; F31.9 Bipolar disorder, unspecified; F17.210 Nicotine dependence, cigarettes, uncomplicated; Z86.711 Personal history of pulmonary embolism; Z79.01 Long term (current) use of anticoagulants; Z28.310 Unvaccinated for COVID-19
CPT/HCPCS: 93005; 85025; 81001; 80048; 36415; 81025; 85610; 80076; 85730; 84443; 84439; 80307; 80143; 80179; 82077; 12002; J2001; J7030

== ENCOUNTER 2024-01-19 15:22 | Inpatient (IN) | payer OTHER ==
--- OUTSIDE RECORDS SUMMARY | 2024-01-19 15:26 | XMS REPORT | Continuity of Care Document ---
Author Name Unknown Address [address] [place] [address] [facility] Address [address] [address] [place] [address] Care Team Providers Care Referral Management Liaison Name Role Phone Megan Mercado Attending Clinician [...] Last Treatment Date Treating Clinician Comments Source [id number] Mixed hyperlipid emia Problem [facility] [id number] Smokes 1 pack of cigarettes per day Problem [facility] [id number] Moderate major depression Problem [facility] [id number] Bipolar 2 disorder Problem [facility] [id number] Symptomati c cholelithi asis Problem [facility] [id number] COPD without exacerbati on Problem [facility] [id number] Other chronic pain Problem [facility] Allergies, Adverse Reactions, Alerts Allergy Name Allergy Type Status Severity Reaction(s) Onset Date Inactive Date Treating Clinician Comments Source No Known Allergie s DA Active U 05-17 00:00: 00 [facility] hydrocod one hydrocod one Active Unknown [facility] Social History Social Habit Start Date Stop Date Quantity Comments Source History of Tobacco Use Current Smoker [facility] Sex Assigned At [facility] Smoking Status Start Date Stop Date Source Current Smoker 2023-12-17 00:00:00 [facility] Medications Ordered Medication Name Filled Medication Name Start Date Stop Date Current Medication? Ordering Clinician Indication Dosage Frequency Signature (SIG) Comments Components Source predniSONE 10 MG predniSONE 10 MG 12-17 00:00: 00 No 1{table t} QD predniSONE 10 MG Naproxen 500 MG Naproxen 500 MG 12-17 00:00: 00 No BID Naproxen 500 MG Xarelto 20 MG Xarelto 20 MG No [...] Xarelto 20 MG No Xarelto 20 MG Abilify 10 MG Abilify 10 MG No 1{table t} QD Abilify 10 MG lamoTRIgine 25 MG lamoTRIgine 25 MG No 1{table t} lamoTRIgin e 25 MG hydroCHLORO thiazide 25 MG hydroCHLORO thiazide 25 MG No hydroCHLOR Othiazide 25 MG OXcarbazepi ne 300 MG OXcarbazepi ne 300 MG No OXcarbazep ine 300 MG Pantoprazol e Sodium 20 MG Pantoprazol e Sodium 20 MG No 1{table t} QD Pantoprazo le Sodium 20 MG Baclofen 20 MG Baclofen 20 MG No TID Baclofen 20 MG Xarelto 20 MG Xarelto 20 MG No Xarelto 20 MG traZODone HCl 100 MG traZODone HCl 100 MG No 1{table t_at_be dtime} QD traZODone HCl 100 MG Atorvastati n Calcium 10 MG Atorvastati n Calcium 10 MG No Atorvastat in Calcium 10 MG Melatonin Melatonin No Melatonin busPIRone HCl 15 MG busPIRone HCl 15 MG No 1{table t} TID busPIRone HCl 15 MG Abilify 10 MG Abilify 10 MG No 1{table t} QD Abilify 10 MG lamoTRIgine 25 MG lamoTRIgine 25 MG No 1{table t} lamoTRIgin e 25 MG hydroCHLORO thiazide 25 MG hydroCHLORO thiazide 25 MG No hydroCHLOR Othiazide 25 MG OXcarbazepi ne 300 MG OXcarbazepi ne 300 MG No OXcarbazep ine 300 MG Pantoprazol e Sodium 20 MG Pantoprazol e Sodium 20 MG No 1{table t} QD Pantoprazo le Sodium 20 MG Baclofen 20 MG Baclofen 20 MG No TID Baclofen 20 MG Xarelto 20 MG Xarelto 20 MG No Xarelto 20 MG traZODone HCl 100 MG traZODone HCl 100 MG No 1{table t_at_be dtime} QD traZODone HCl 100 MG Atorvastati n Calcium 10 MG Atorvastati n Calcium 10 MG No Atorvastat in Calcium 10 MG Melatonin Melatonin No Melatonin busPIRone HCl 15 MG busPIRone HCl 15 MG No 1{table t} TID busPIRone HCl 15 MG Mirtazapine 30 MG Mirtazapine 30 MG [...] No Ventolin HFA 108 (90 Base) MCG/ACT Immunizations Ordered Immunization Name Filled Immunization Name Date Status Comments Source Fluarix (IIV4) - SDS - 0.5mL Fluarix (IIV4) - SDS - 0.5mL Unknown Completed [facility] Fluarix (IIV4) - SDS - 0.5mL Fluarix (IIV4) - SDS - 0.5mL Unknown Completed [facility] Fluarix (IIV4) - SDS - 0.5mL Fluarix (IIV4) - SDS - 0.5mL Unknown Completed [facility] Fluarix (IIV4) - SDS - 0.5mL Fluarix (IIV4) - SDS - 0.5mL Unknown Completed [facility] Fluarix (IIV4) - SDS - 0.5mL Fluarix (IIV4) - SDS - 0.5mL Unknown Completed [facility] Fluarix (IIV4) - SDS - 0.5mL Fluarix (IIV4) - SDS - 0.5mL Unknown Completed [facility] Fluarix (IIV4) - SDS - 0.5mL Fluarix (IIV4) - SDS - 0.5mL Unknown Completed [facility] Fluarix (IIV4) - SDS - 0.5mL Fluarix (IIV4) - SDS - 0.5mL Unknown Completed [facility] Fluarix (IIV4) - SDS - 0.5mL Fluarix (IIV4) - SDS - 0.5mL Unknown Completed [facility] Fluarix (IIV4) - SDS - 0.5mL Fluarix (IIV4) - SDS - 0.5mL Unknown Completed [facility] Fluarix (IIV4) - SDS - 0.5mL Fluarix (IIV4) - SDS - 0.5mL Unknown Completed [facility] Vital Signs Vital Name Observation Time Observation Value Comments Andie brandon height 2023-12-17 10:20:00 67.5 [in_i] Comm on [facility] weight 2023-12-17 10:20:00 223 [lb_av] Comm on [facility] temperature 2023-12-17 10:20:00 98.2 [degF] Com mon [facility] bmi 2023-12-17 10:20:00 34.41 kg/m2 Comm on [facility] oximetry 2023-12-17 10:20:00 97 % Commo n [facility] respiratory rate 2023-12-17 10:20:00 16 /min [facility] blood pressure systolic 2023-12-17 10:20:00 133 mm[Hg] [facility] blood pressure diastolic 2023-12-17 10:20:00 80 mm[Hg] [facility] height 2023-11-25 08:00:00 67.5 [in_i] Comm on [facility] weight 2023-11-25 08:00:00 230 [lb_av] Comm on [facility] bmi 2023-11-25 08:00:00 35.49 kg/m2 Comm on [facility] height 2023-09-23 10:20:00 67.5 [in_i] Comm on [facility] weight 2023-09-23 10:20:00 229 [lb_av] Comm on [facility] temperature 2023-09-23 10:20:00 97.3 [degF] Com mon [facility] bmi 2023-09-23 10:20:00 35.33 kg/m2 Comm on [facility] oximetry 2023-09-23 10:20:00 98 % Commo n [facility] respiratory rate 2023-09-23 10:20:00 17 /min [facility] blood pressure systolic 2023-09-23 10:20:00 138 mm[Hg] [facility] blood pressure diastolic 2023-09-23 10:20:00 82 mm[Hg] [facility] Encounters Start Date/Time End Date/Time Encounter Type Admission Type Attending [facility] Facility Care Department Encounter ID Source 2023-12-17 09:46:01 Outpatient Megan Mercado [facility] ST[facility] [id number] [facility] 2023-10-14 15:47:01 Outpatient Megan Mercado [facility] [id number] [facility] 2023-09-23 07:57:00 Outpatient Megan Mercado [facility] [id number] [facility] 2024-01-15 19:46:09 2024-01-15 19:46:09 Outpatient [facility] [id number] Kranthi Murillo 2024-01-15 00:00:00 2024-01-15 00:00:00 (WEB) STLMLC STLMLC [id number] [facility] 2024-01-13 00:00:00 2024-01-13 00:00:00 (WEB) STLMLC STLMLC [id number] [facility] 2023-12-17 00:00:00 2023-12-17 00:00:00 OFFICE VISIT ESTAB PT LEVEL 3 [facility] STL[facility]C [id number] [facility] 2023-12-03 00:00:00 2023-12-03 00:00:00 (WEB) STLMLC STLMLC [id number] [facility] 2023-11-25 00:00:00 2023-11-25 00:00:00 OFFICE VISIT ESTAB PT LEVEL 4 STLMLC STLMLC [id number] [facility] 2023-11-24 00:00:00 2023-11-24 00:00:00 (TEL) STLMLC STLMLC [id number] [facility] 2023-10-20 00:00:00 2023-10-20 00:00:00 (TEL) STLMLC STLMLC [id number] [facility] 2023-09-27 00:00:00 2023-09-27 00:00:00 (WEB) STLMLC STLMLC [id number] [facility] 2023-09-24 00:00:00 2023-09-24 00:00:00 (TEL) STLMLC STLMLC [id number] [facility] 2023-09-24 00:00:00 2023-09-24 00:00:00 (TEL) STLMLC STLMLC [id number] [facility] 2023-09-23 00:00:00 2023-09-23 00:00:00 OFFICE VISIT NEW PT LEVEL 4 STLMLC STLMLC [id number] [facility] 2023-08-29 00:00:00 2023-08-29 00:00:00 Outpatient [id number] nis_K [facility] [id number] [facility] 2023-05-17 21:27:00 2023-05-18 01:45:00 Emergency EM Steven Jaramillo [facility] ER [id number] [address] [facility] Results Test Description Test Time Test Comments Results Result Co mments Source HEPATIC FUNCTION [id number] 01:59:00* Test Item Value Reference Range Interpretation Comme nts TOTAL PROTEIN (test code = PROT) 7.8 G/DL 6.4-8.2 N ALBUMIN (test code = ALB) 3.9 G/DL 3.4-5.0 N GLOBULIN (test code = GLOB) 3.9 G/DL 1.5-3.8 H ALBUMIN/GLOBULIN RATIO (test code = A/G) 1.0 1.1-2.2 L BILIRUBIN TOTAL (test code = BILT) 0.9 MG/DL 0.0-1.0 N BILIRUBIN DIRECT (test code = BILD) 0.2 MG/DL 0.0-0.3 N SGOT/AST (test code = AST) 20 Units/L 15-37 N Results of this assay method may be falsely depressed orelevated if patient is taking sulfasalazine. SGPT/ALT (test code = ALT) 26 Units/L 30-65 L Results of this assay method may be falsely depressed orelevated if patient is taking sulfasalazine. ALKALINE PHOSPHATASE TOTAL (test code = ALKP) 107 Units/L 50-136 N BILIRUBIN INDIRECT (test code = BILIND) 0.7 MG/DL 0.0-0.7 N [id number] 01:59:00* Test Item Value Reference Range Interpretation Comme nts LIPASE (test code = LIP) 58 Units/L 73-393 L [id number] 01:59:00* Test Item Value Reference Range Interpretation Comme nts MAGNESIUM (test code = MAG) 1.7 MG/DL 1.8-2.4 L NT PRO-BRAIN NATRIURETIC [id number] 01:59:00* Test Item Value Reference Range Interpretation Comme nts NT PRO-BRAIN NATRIURETIC PEPTI (test code = PROBNP) 138 PG/ML 0-125 H Results of this assay method may be falsely depressed orelevated if patient is taking high doses of Biotin. CPK-MB [id number] 01:59:00* Test Item Value Reference Range Interpretation Comme nts CK (test code = CKT) 128 Units/L 26-192 N CKMB (test code = CKMBT) 1.0 NG/ML 0.0-3.6 N CKMB suggestive of non-AMI; MB Index is not reported. CKMB INDEX (test code = CKMBI) % 0.0-2.4 TROP-I HIGH [id number] 01:59:00* Test Item Value Reference Range Interpretation [...] troponin from other clinical conditions, the Fourth [place] Definition of Myocardial Infarction stresses clinical assessment and demonstration of a rise and/or fall in serial troponin results above the upper reference limit.Results of this assay method may be falsely depressed orelevated if patient is taking high doses of Biotin. [id number] 01:59:00* Test Item Value Reference Range Interpretation Comme nts ALCOHOL (test code = ALC) < 3 MG/DL 0-10 N 0 - 10: Should b e interpreted as NEGATIVE. 11 - 50: None to mild euphoria. 51 - 100: Mild influence on vision and dark adaptation. > 80: Legal intoxication; Depression of ROD BUSTER; Increasing degree of poisoning. > 400: Fatalities reported. Results are for medical purposes only and not forlegal or employment evaluative purposes. PROTHROMBIN [id number] 23:01:00* Test Item Value Reference Range Interpretation Comme [facility] PROTHROMBIN TIME PATIENT (test code = PTP) [...] with flex-stent *: 3.0 - 4.0(*) = mixing house operator's suggested range Is patient on anticoagulants? No AnticoagulantsD-DIMER [id number] 23:01:00 * Test Item Value Reference Range Interpretation Comme [facility] D-DIMER QUANT (test code = DDIMER) < [...] Is patient on anticoagulants? No AnticoagulantsCV CALL [id number] 23:01:00* Test Item Value Reference Range Interpretation Comme nts CV CALL COAG (test code = CVCG) Called Results called t o and read back by SKYLA SCHNEIDER;.for analyte(s): [place] [address]/17/23 by SONIABVP. Is patient on anticoagulants? No AnticoagulantsDRUG OF [...] confirmed by alternate methods (i.e., GC/MS) at [facility]. Results of screen may not be usedin criminal justice, job performance or professionalcredential review, or infant custody issues. Negative [place] Level ng/ml ----- Cocaine 300 Methamphetamine (Ecstacy) 500 Cannabinoids (THC) 50 Amphetamine 1000 Barbiturates 200 Benzodiazepines 200 Opiates 300 Phencyclidine (PCP) 25 UR HCG [id number] 22:39:00* Test Item Value Reference Range Interpretation Comme nts UR HCG QUAL (test code = HCGQLU) NEGATIVE NEGATIVE False negatives may occur when levels of hCGare below 20 mIU/ml. When is still suspected, a new specimenshould be obtained after 48 hours and re-tested.If waiting 48 hours is not medically advisable,the test result should be confirmed using aquantitative hCG assay. CBC W/AUTO [id number] 22:36:00* Test Item Value Reference Range Interpretation [...] 3/uL 0.0-0.2 N - XR CHEST 1 [id number] 22:16:00 [facility] CENTERName: PREMA [facility]FA : 1980 Sex: FPatient Name: PREMA MUSTAFA Unit No: [id number] EXAMS: CPT CODE: [id number] XR CHEST 1 V 51169 Reason: syncope EXAMINATION: - XR CHEST 1 V LOCATION: H101 INDICATION/CLINICAL HISTORY: syncope COMPARISON: None. TECHNIQUE: AP view of the chest. FINDINGS: LINES/DEVICE:None. CARDIOMEDIASTINAL SILHOUETTE: Cardiac silhouette is normal in size. LUNGS/PLEURA: Lungs are clear without pneumothorax or pleural effusion. UPPER ABDOMEN: Unremarkable. BONE/SOFT TISSUE: No acute fractures demonstrated. IMPRESSION: No acute cardiopulmonary findings. Electronically Signed by Jigna Gallegos MD on 3at 2215 Reported and signed by: Jigna Gallegos MD CC: Artemio SERNA Technologist: Hever Burns RT Trscrpt Dt/ (2215)t.ELEAZARR.TH15 Orig Print D/T: S: 05/17/2023 (2218) [facility] [place] PREMA MUSTAFA [address] PHYS: Steven Chang MD [facility] [place], [place] [address]MRD: 1980 AGE: 42 SEX: F LOC: Mary GraceGloriaYULIA PHONE #: [phone] EXAM DATE: 05/17/2023 STATUS: PRE ER FAX #: RAD NO: DC Dt: PAGE 1 Signed Report- CT HEAD/BRAIN W/O CONT 2023-05-17 22:12:00 [facility] 1980 Sex: FPatient Name: PREMA MUSTAFA Unit No: [id number] EXAMS: CPT CODE: [id number] CT HEAD/BRAIN W/O CONT 27763 Reason: syncope/dizziness EXAM: - CT HEAD/BRAIN W/O [...] signed by: Jigna Gallegos MD CC: Artemio Titus PATechnologist: Jessica Ritter CT Trscrpt Dt/ (2212)MichaelR.TH15 Orig Print D/T: S: 05/17/2023 (6526) CTDI: DLP: [facility] [place] NAME: PREMA MUSTAFA [address] PHYS: [place] [address] : 1980 AGE: 42 SEX: F LOC: KODY PHONE #: [phone] EXAM DATE: 05/17/2023 STATUS: PRE ER FAX #: RAD NO: DC Dt: PAGE 1 Signed ReportXR LUMBAR SPINE (AP/LATERAL)2019-09-03 15:04:54Procedure: XR LUMBAR SPINE (AP/LATERAL)Order Date: 09/03/2019 1:29 PMOrdering Provider: CHRISTIAN Jonesinical Indication: [id number]: Low back painComparison: NoneFindings:There is no acute [...] 09/03/20192:58 PMDictated By: DUNIA SANTOSDate: 09/03/2019 14:[address] [facility] [id number] 19:23:00* Test Item Value Reference Range Interpretation Comme nts Protime (test code = PT) 10.7 seconds 9.0-11.9 INR (test code = INR) 1.0 0.9-1.1 INR results are intended ONLY to monitor Oral Anticoagulant therapy in stablized patients. The INR Therapeutic Range is 2.0 - 3.0 Patients with a mechanical heart, the INR Range is 2.5 - 3.5 [facility] WITH [id number] 19:10:00* Test Item Value Reference Range Interpretation Comme nts Color (test code = UCOLR) YELLOW Clarity (test code = UCLAR) CLOUDY Glucose (test code = UGLUC) NEGATIVE NEGATIVE N Bilirubin (test code = UBILI) NEGATIVE NEGATIVE N Ketones (test code = UKET) NEGATIVE NEGATIVE N Specific [place] (test code = USPGR) 1.015 1.005-1.030 A [...] code = UBACT) 4+ None Seen,Trace A [facility] (HEMOGRAM ONLY)2017-02-21 19:10:00* Test Item Value Reference [...] 8.6 fL 7.4-10.4 THIS IS A HEMOGRAM ONLYMemorial Medical CenterAMYLASE, [id number] 19:07:00* Test Item Value Reference Range Interpretation Comme [facility] Amylase (test code = AMYL) 60 U/L 12-103 [facility], [id number] 19:07:00* Test Item Value Reference Range Interpretation Comme nts Lipase (test code = LIPA) 57 U/L 8-223 [facility] CenterHEP[facility] FUNCTION PANEL (LIVER)2017-02-21 19:07:00 * Test Item Value Reference Range Interpretation Comme nts T Protein (test code = TP) 8.0 [...] cod e = IBIL) 0.4 mg/dl 0.0-1.1 [facility] CenterBMP2017-04-21 19:07:00* Test Item Value Reference Range Interpretation [...] and management of chronic kidney failure. [facility] CenterfkinPREGNANCY TEST, Serum [id number] 19:03:00* Test Item Value Reference Range Interpretation Comme nts (Serum) (test code = PREGS) Negative [facility] WITHOUT [id number] 10:41:00 * Test Item Value Reference Range Interpretation Comme nts Color (test code = UCOLR) YELLOW Clarity (test code = UCLAR) CLOUDY Glucose (test code = UGLUC) NEGATIVE NEGATIVE N Bilirubin (test code = UBILI) NEGATIVE NEGATIVE N Ketones (test code = UKET) NEGATIVE NEGATIVE N Specific [place] (test code = USPGR) <=1.005 1.005-1.03 0 A Blood (test code = UBLD) NEGATIVE NEGATIVE N PH (test code = UPH) 5.5 4.5-8.0 A Protein (test code = UPROT) NEGATIVE NEGATIVE N Urobilinogen (test code = U UROB) 0.2 >0.2 N Nitrite (test code = UNITR) NEGATIVE NEGATIVE N Leukocyte Esterase (test cod e = ULEUK) TRACE NEGATIVE A [facility]-[id number] 09:50:00* Test Item Value Reference Range Interpretation [...] assessment and management of chronic kidney failure. [facility]inLIPASE, [id number] 09:50:00* Test Item Value Reference Range Interpretation Comme nts Lipase (test code = LIPA) 115 U/L 8-223 [facility] HospitalkinAMYLASE, [id number] 09:50:00* Test Item Value Reference Range Interpretation Comme nts Amylase (test code = AMYL) 61 U/L 12-103 [facility] CenterCB WITH AUTO [id number] 09:40:00* Test Item Value Reference Range Interpretation [...] Auto (test code = NRBC_AUTO) 0 AUTO [facility] Notes Date/Time Note Provider Source 2023-05-17 21:47:00 [id number]:47:00 [facility] PROVIDER REPORTREPORT#:[id number] REPORT STATUS: SignedDATE:05/17/23 TIME: 2146 PATIENT: PREMA MUSTAFA UNIT #: [id number]#: [id number] ROOM/BED:AGE: 42 SEX: F PCP PHYS: Ananda [...] patientInitial Greet Date/Time 05/17/23ssumed Care at Time 2126 Date 05/17/23 PresentationChief Complaint Lost consciousnessSyncope Description Single episodeOnset [...] Past Medical History - AdultStated Complaint SOB-MUSCLE YZAM-ASHW-PCSLGYbkbujpylYarma Allergies:No Known Allergies (05/17/23) Physical Exam Vital SignsVital SignsFirst Documented: Result Date Time Pulse Ox 98 05/17 2127 B/P 122/84 05/17 2127 B/P Mean 96 05/17 2127 O2 Delivery Room air 05/17 2127 Temp 36.7 05/17 2127 Pulse 87 05/17 2127 Resp 05/17 Last Documented: Result Date Time Pulse Ox [...] % (Auto) (24 - 44 %) 27.4 [place] % (Auto) (0.0 - 4.0 %) 4.8 [...] 96 On: Room air Interpretation Interpreted by hi, Pulse oximetry normal Re-Evaluation MDM )( Re-Evaluation/Progress [...] STA 05/17 2150 DC 05/17 IV 05/17 224 221 Differential Diagnosis)( Differential Diagnosis Acute coronary syndrome, [...] )( Date 05/18/23 at 2317 at 0516RPT #:[id number] OF REPORTEDEmergency department [id number]:47:00D.[id number] ilable for patient [id number]:17:58 [facility]
[2024-01-19 15:59] LABS: Absolute Basophils 0.1 K/uL (0-0.5); Absolute Eosinophils 0.1 K/uL (0-0.5); Absolute Lymphocytes (CBC) 1.7 K/uL (0.7-4.9); Absolute Monocytes 0.5 K/uL (0.1-1.3); Absolute Neutrophil 5.4 K/uL (1.8-8.0); Basophils % 1.1 % (0-1.3); Eosinophils % 0.7 % (0-4.4); Hematocrit 39.6 % (36.0-45.0); Hemoglobin 13.7 g/dL (12.0-15.0); Lymphocytes % 21.5 % (15.3-44.8); MCH 33.6 pg (27.0-35.0); MCHC 34.5 g/dL (32.0-36.0); MCV 97.4 fL (80-100); MPV 8.3 fL (7.6-11.3); Monocytes % 6.5 % (3.3-12.3); Neutrophils % 70.2 % (41.7-73.7); Nucleated Red Blood Cells % 0.1 % (0-0); Platelets 207 thou/uL (152-406); RBC Red Blood Cell Count 4.06 M/uL (3.86-4.86); Red Cell Distribution Width 13.9 % (12.1-15.2)
[2024-01-19 16:10] LABS: PTT, Activated Partial Thromb 73.4 SECONDS (24.3-36.9)
[2024-01-19 16:14] LABS: Barbiturates NEGATIVE (NEGATIVE); Benzodiazepines NEGATIVE (NEGATIVE); Cocaine NEGATIVE (NEGATIVE); METHAMPHETAM NEGATIVE (NEGATIVE); Methadone NEGATIVE (NEGATIVE); Opiates NEGATIVE (NEGATIVE); Phencyclidine NEGATIVE (NEGATIVE); THC Cannibis NEGATIVE (NEGATIVE)
[2024-01-19 16:18] LABS: Protime INR 6.04
[2024-01-19 16:32] LABS: ALT/SGPT 19 U/L (13-56); AST/SGOT 16 U/L (15-37); Albumin 3.4 g/dL (3.4-5.0); Albumin/Globulin Ratio 0.9 (1.1-1.8); Alkaline Phosphatase 91 U/L (45-117); Anion Gap 9.6 mEq/L (5.0-15.0); BUN Blood Urea Nitrogen 10 mg/dL (7-18); Bicarbonate 25 mEq/L (21-32); Bilirubin Direct 0.3 mg/dL (0-0.2); Bilirubin Indirect, Calculated 0.6 mg/dL (0.2-0.8); Bilirubin Total 0.9 mg/dL (0.2-1.0); Globulin 3.8 g/dL (2.3-3.5); Glomerular Filtration Rate 52 ml/min (=/>90); Glucose Level 109 mg/dL (74-106); Potassium 3.6 mEq/L (3.5-5.1); Protein, Total 7.2 g/dL (6.4-8.2); Sodium Level 139 mEq/L (136-145)
--- NOTE | 2024-01-19 16:46 | ER ---
Nurse's Notes [facility] Name: Prema Mustafa Age: 43 yrs Sex: Female : 1980 Arrival Date: 01/19/2024 Time: 15:22 Bed 19 Private MD: Diagnosis: Supratherapeutic INR;Suicide attempt, initial encounter Presentation: 01/18 15:22 Chief complaint: EMS states: pt took 25 tablets of 100mg Trazodone, 85 tablets of kc6 Xarelto, 85 tablets of Abilify, and 25 tablets of Protonix at about 8pm last night as a suicidal attempt. BGL en route 175. 15:22 Acuity: LB 2 kc6 15:22 Coronavirus screen: At this time, the client does not indicate any symptoms associated kc6 with coronavirus-19. Ebola Screen: No symptoms or risks identified at this time. Initial Sepsis Screen: Does the patient meet any 2 criteria? No. Patient's initial sepsis screen is negative. Does the patient have a suspected source of infection? No. Patient's initial sepsis screen is negative. Risk Assessment: Do you want to hurt yourself or someone else? Patient reports desire/thoughts of hurting themselves or someone else. Provider notified. Onset of symptoms was January 18, 2024 at 20:00. 15:22 Method Of Arrival: EMS: [facility] kc6 Triage Assessment: 15:22 General: Appears in no apparent distress. comfortable, well groomed, well developed, kc6 Behavior is calm, cooperative, appropriate for age. Pain: Denies pain. EENT: No signs and/or symptoms were reported regarding the EENT system. Neuro: Level of Consciousness is awake, alert, obeys commands, Oriented to person, place, time, situation, Appropriate for age. Cardiovascular: Capillary refill < 3 seconds. Respiratory: Airway is patent Trachea midline Respiratory effort is even, unlabored, Respiratory pattern is regular, symmetrical. GI: No signs and/or symptoms were reported involving the gastrointestinal system. : No signs and/or symptoms were reported regarding the genitourinary system. Derm: No signs and/or symptoms reported regarding the dermatologic system. Skin is intact, is healthy with good turgor, Skin is pink, warm \\T\\ dry. Musculoskeletal: No signs and/or symptoms reported regarding the musculoskeletal system. Circulation, motion, and sensation intact. Capillary refill < 3 seconds, Range of motion: intact in all extremities. 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 - Social history:: Smoking status: unknown. Screenin:22 [facility] ED Fall Risk Assessment (Adult) History of falling in the last 3 months, kc6 including since admission No falls in past 3 months (0 pts) Confusion or Disorientation No (0 pts) Intoxicated or Sedated No (0 pts) Impaired Gait No (0 pts) Mobility Assist Device Used No (0 pt) Altered Elimination No (0 pt) Score/Fall Risk Level 0 - 2 = Low Risk. Abuse screen: Denies threats or abuse. Denies injuries from another. Nutritional screening: No deficits noted. Tuberculosis screening: No symptoms or risk factors identified. Assessment: 15:20 Reassessment: Poison Control notified. Spoke with Mariluz in [place], case #[id number]. cp4 Informed that toxicology labs should be performed along with basic labs, ptt, pt. Observation for 6 hrs. Notify poison control of any measurable asa or tylenol level. 15:22 Reassessment: please see triage. 6 15:22 Reassessment: pt states "I did it because I felt like my family doesn't care and I'm kc6 tired of having to do everything." pt denies SI or HI in this moment. states she called EMS today because she was thinking about her kids and wants help. 16:21 Reassessment: spoke with Mariluz from poison control and informed of PT, PPT, and INR [facility] results... transferred to Dr. Ramírez to speak with their MD. 17:25 Reassessment: Patient appears in no apparent distress at this time. No changes from kc6 previously documented assessment. Patient and/or family updated on plan of care and expected duration. Pain level reassessed. Patient is alert, oriented x 3, equal unlabored respirations, skin warm/dry/pink. Patient denies pain at this time. 18:25 Reassessment: Patient appears in no apparent distress at this time. No changes from kc6 previously documented assessment. Patient and/or family updated on plan of care and expected duration. Pain level reassessed. Patient is alert, oriented x 3, equal unlabored respirations, skin warm/dry/pink. Overdose: 15:22 [place] Suicide Severity Screening: "In the past month, have you wished you were kc6 or wished you could go to sleep and not wake up?" Patient responds "yes." Based off client's responses, additional C-SSRS screening questions required. "In the past month, have you actually had any thoughts of killing yourself?" Patient responds "yes." Based off client's responses, additional C-SSRS screening questions required. "In your lifetime, have you ever done anything, started to do anything, or prepared to do anything to end your life?" Patient responds "yes." Patient reports suicidal intent within 3 past months. Overdose occurred more than 10 hours ago. Vital Signs: 15:22 BP 115 / 87; Pulse 88; Resp 16 S; Temp 98.2(O); Pulse Ox 96% on R/A; Weight 101.15 kg kc6 (R); Height 5 ft. 9 in. (R); Pain 0/10; 17:25 BP 113 / 68; Pulse 77; Resp 16 S; Pulse Ox 100% on R/A; kc6 18:30 BP 103 / 67; Pulse 61; Resp 16 S; Pulse Ox 97% on R/A; kc6 15:22 Body Mass Index 32.93 (101.15 kg, 175.26 cm) [facility] 15:22 Pain Scale: Adult kc6 ED Course: 15:22 Safety Checks: Personal items have been removed. The door is open or patient has been kc6 placed in a hallway bed/chair. There are no family/friend visitors at this time Sitter present at this time. 15:22 Maintain EMS IV. Dressing intact. Good blood return noted. Site clean \\T\\ dry. Gauge \\T\\ [place] 6 site: 20GLAC. Patient maintains SpO2 saturation greater than 95% on room air. 15:22 Arm band placed on. kc6 15:38 Patient arrived in ED. kc6 15:40 Roger Briones MD is Attending Physician. ec2 15:41 Attending Physician role handed off by Roger Briones MD ec2 15:41 Nicanor Ramírez DO is Attending Physician. ec2 15:44 Donya Kraft RN is Primary Nurse. kc6 15:59 Patient has correct armband on for positive identification. Bed in low position. Side kc6 rails up X2. Sitter at bedside. Door closed. Noise minimized. Visitors limited. Lights dimmed. Warm blanket given. Pillow given. Patient is placed in psych hold. 16:04 Triage completed. kc6 16:26 CT Head Brain wo Cont In Process Unspecified. EDMS 16:41 Rudolph Meraz MD is Hospitalizing Provider. ms3 17:15 Inserted saline lock: 20 gauge in right antecubital area, using aseptic technique. kc6 17:25 IV discontinued, intact, bleeding controlled, No redness/swelling at site. Pressure kc6 dressing applied, 20G LAC. 17:34 Client placed on continuous cardiac and pulse oximetry monitoring. NIBP monitoring kc6 applied. cafeteria monitor on. 19:00 No provider procedures requiring assistance completed. kc6 Administered Medications: 17:16 Drug: Kcentra IV 1,000 unit 1,000 unit 2000 units IV at calculated rate once Route: IV; kc6 Rate: calculated rate; Site: right antecubital; 17:25 Follow up: Response: No adverse reaction; IV Status: Completed infusion; IV Intake: kc6 150ml Medication: 18:30 VIS not applicable for this client. kc6 Intake: 17:25 IV: 150ml; Total: 150ml. kc6 Outcome: 16:45 Decision to Hospitalize by Provider. ms3 18:30 Admitted to ICU accompanied by tech, via stretcher, room ICU 6, with chart, Report kc6 called to JAH Arias 18:30 Condition: stable 19:04 Patient left the ED. kc6 Signatures: Dispatcher [employer] EDWY Nicanor Ramírez DO DO ms3 Donya Kraft RN RN kc6 Roger Briones MD MD 2 Chasidy Haynes cp4 Corrections: (The following items were deleted from the chart) 16:08 15:58 Maintain EMS IV. Dressing intact. Good blood return noted. Site clean \\T\\ dry. kc6 Gauge \\T\\ site: 20GLAC. kc6 16: 15:58 Patient maintains SpO2 saturation greater than 95% on room air. kc6 kc6 16:08 15:59 Tuberculosis screening: No symptoms or risk factors identified. kc6 6 16: 15:59 Abuse screen: Denies threats or abuse. Denies injuries from another. kc6 6 16:08 15:59 Nutritional screening: No deficits noted. kc6 [facility] 16:08 15:59 [facility] ED Fall Risk Assessment (Adult) History of falling in the last 3 months, 6 including since admission No falls in past 3 months (0 pts) Confusion or Disorientation No (0 pts) Intoxicated or Sedated No (0 pts) Impaired Gait No (0 pts) Mobility Assist Device Used No (0 pt) Altered Elimination No (0 pt) Score/Fall Risk Level 0 - 2 = Low Risk [facility] 16:27 16:21 Reassessment: spoke with Mariluz from poison control and informed of PT, PPT, and kc INR results. recommend [facility]
--- NOTE | 2024-01-19 16:46 | EDPHYS ---
Physician Documentation [facility] Name: Prema Mustafa Age: 43 yrs Sex: Female : 1980 Arrival Date: 01/19/2024 Time: 15:22 Bed 19 Private MD: ED Physician Nicanor Ramírez HPI: 01/18 16:03 This 43 yrs old Female presents to ER via Unassigned with complaints of Overdose, ms3 Suicidal Ideation. 16:03 43-year-old female with past medical history of bipolar disorder and pulmonary embolism ms3 presents to the emergency department via [facility] after taking the following: Pantoprazole 20 mg quantity 90 filled January 14, 2024; aripiprazole 10 mg tablets quantity 30 filled January 15, 2024; Xarelto 20 mg tablets quantity 90 filled January 14, 2024, trazodone 100 mg tablets quantity 30 filled January 15, 2024. Patient states she was feeling lonely and is tired of being alone. Patient states she was trying to kill herself. 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 - Social history:: Smoking status: unknown. ROS: 16:03 Constitutional: Negative for fever, and chills. Neck: Negative for injury, pain, and ms3 swelling, Cardiovascular: Negative for chest pain, and palpitations. Respiratory: Negative for shortness of breath, cough, wheezing, and pleuritic chest pain, Abdomen/GI: Negative for abdominal pain, nausea, vomiting, diarrhea, and constipation, MS/Extremity: Negative for injury and deformity, Skin: Negative for injury, rash, and discoloration, Neuro: Negative for headache, weakness, numbness, tingling. 16:03 Psych: Positive for depression, suicide gesture, 16:03 All other systems are negative, Exam: 16:03 Constitutional: This is a well developed, well nourished patient who is awake, alert, ms3 and in no acute distress. Head/Face: Normocephalic, atraumatic. Chest/axilla: Normal chest wall appearance and motion. Nontender with no deformity. Cardiovascular: Regular rate and rhythm with a normal S1 and S2. No gallops, murmurs, or rubs. Normal PMI, no JVD. No pulse deficits. Respiratory: Lungs have equal breath sounds bilaterally, clear to auscultation and percussion. No rales, rhonchi or wheezes noted. No increased work of breathing, no retractions or nasal flaring. Abdomen/GI: Soft, non-tender, with normal bowel sounds. No distension or tympany. No guarding or rebound. No evidence of tenderness throughout. Skin: Warm, dry with normal turgor. Normal color with no rashes, no lesions, and no evidence of cellulitis. MS/ Extremity: Pulses equal, no cyanosis. Neurovascular intact. Full, normal range of motion. Neuro: Awake and alert, GCS 15, oriented to person, place, time, and situation. Cranial nerves II-XII grossly intact. Motor strength 5/5 in all extremities. Sensory grossly intact. Cerebellar exam normal. Normal gait. 16:03 Psych: Behavior/mood is pleasant, cooperative, Affect is calm, Oriented to person, place, time, Patient having thoughts of suicide. Plan for suicide is Patient overdosed at 8 PM last 16:40 ECG was reviewed by the Attending Physician. ms3 Vital Signs: 15:22 BP 115 / 87; Pulse 88; Resp 16 S; Temp 98.2(O); Pulse Ox 96% on R/A; Weight 101.15 kg kc6 (R); Height 5 ft. 9 in. (R); Pain 0/10; 17:25 BP 113 / 68; Pulse 77; Resp 16 S; Pulse Ox 100% on R/A; kc6 18:30 BP 103 / 67; Pulse 61; Resp 16 S; Pulse Ox 97% on R/A; kc6 15:22 Body Mass Index 32.93 (101.15 kg, 175.26 cm) kc6 15:22 Pain Scale: Adult kc6 MDM: 15:40 Patient medically screened. ec2 15:54 ED course: Poison control recommendations: Tox labs, CT head, Observation for 6 hours. ms3 Notify poison control if ASA or Tylenol detected.. 16:03 Differential diagnosis: Ingestion/exposure to Trazodone Xarelto, aripiprazole, ms3 pantoprazole over medication, intracranial hemorrhage. 16:32 ED course: Discussed case with Poison control and they recommend [facility]. ms3 16:47 Data reviewed: vital signs, nurses notes, and as a result, I will admit patient. ms3 Consideration of Admission/Observation Patient was admitted/placed on observation. Management of patient was discussed with the following: Hospitalist: Dr Meraz. I considered the following discharge prescriptions or medication management in the emergency department Medications were administered in the Emergency Department. See MAR. Independent interpretation of the following test(s) in the Emergency Department EKG: See my EKG interpretation above CT Scan: My interpretation is CT head without contrast images reviewed by me does not reveal ICH. Historians other than the Patient: EMS: [facility]. Care significantly affected by the following chronic conditions: PE. Counseling: I had a detailed discussion with the patient and/or guardian regarding the historical points, exam findings, and any diagnostic results supporting the discharge/admit diagnosis, lab results, the need for further work-up and treatment in the hospital. 01/18 15:48 Order name: Acetaminophen; Complete Time: 16:46 ms3 01/18 15:48 Order name: BMP; Complete Time: 16:46 ms3 01/18 15:48 Order name: CBC with Diff; Complete Time: 16:25 ms3 01/18 15:48 Order name: Ethanol; Complete Time: 16:25 ms3 01/18 15:48 Order name: Hepatic Function; Complete Time: 16:46 ms3 01/18 15:48 Order name: Protime (+inr); Complete Time: 16:25 ms3 01/18 15:48 Order name: Ptt, Activated; Complete Time: 16:25 ms3 01/18 15:48 Order name: Salicylate; Complete Time: 16:55 ms3 01/18 15:48 Order name: Urine Drug Screen; Complete Time: 16:25 ms3 01/18 15:48 Order name: Magnesium; Complete Time: 16:46 ms3 01/18 17:28 Order name: CBC with Automated Diff EDMS 01/18 17:28 Order name: CBC with Automated Diff EDMS 01/18 17:28 Order name: CBC with Automated Diff EDMS 01/18 17:28 Order name: CBC with Automated Diff EDMS 01/18 17:28 Order name: CBC with Automated Diff EDMS 01/18 17:28 Order name: Comprehensive Metabolic Panel EDMS 01/18 17:28 Order name: Comprehensive Metabolic Panel EDMS 01/18 17:28 Order name: Comprehensive Metabolic Panel EDMS 01/18 17:28 Order name: Comprehensive Metabolic Panel EDMS 01/18 17:28 Order name: Comprehensive Metabolic Panel EDMS 01/18 17:28 Order name: Magnesium EDMS 01/18 17:28 Order name: Magnesium EDMS 01/18 17:28 Order name: Magnesium EDMS 01/18 17:28 Order name: Magnesium EDMS 01/18 17:28 Order name: Magnesium EDMS 01/18 17:28 Order name: Protime (+INR) EDMS 01/18 17:28 Order name: Protime (+INR) EDMS 01/18 17:28 Order name: Protime (+INR) EDMS 01/18 17:28 Order name: Protime (+INR) EDMS 01/18 17:28 Order name: Protime (+INR) EDMS 01/18 15:54 Order name: CT Head Brain wo Cont; Complete Time: 17:32 ms3 01/18 17:32 Order name: ERT POISON CONTROL CONTACT EDMS 01/18 15:48 Order name: EKG; Complete Time: 15:48 ms3 01/18 15:48 Order name: EKG - Nurse/Tech; Complete Time: 16:19 ms3 01/18 15:48 Order name: IV Saline Lock; Complete Time: 15:58 ms3 01/18 15:48 Order name: Labs collected and sent; Complete Time: 15:58 ms3 01/18 15:48 Order name: O2 Per Protocol; Complete Time: 15:58 ms3 01/18 15:48 Order name: O2 Sat Monitoring; Complete Time: 15:58 ms3 01/18 15:48 Order name: Suicide Screening ([place]); Complete Time: 15:58 ms3 01/18 15:48 Order name: Suicide Precautions; Complete Time: 15:58 ms3 EC:40 Rate is 76 beats/min. Rhythm is regular. QRS [place] is Normal. OR interval is normal. QRS ms3 interval is normal. QT interval is normal. Clinical impression: Normal ECG. Interpreted by me. Reviewed by me. Administered Medications: 17:16 Drug: Kcentra IV 1,000 unit 1,000 unit 2000 units IV at calculated rate once Route: IV; kc6 Rate: calculated rate; Site: right antecubital; 17:25 Follow up: Response: No adverse reaction; IV Status: Completed infusion; IV Intake: kc6 150ml Disposition Summary: 01/19/24 16:45 Hospitalization Ordered Notes: Hospitalization Status: Inpatient Admission ms3 Provider: Rudolph Meraz ms3 Condition: Stable ms3 Problem: new ms3 Symptoms: are unchanged ms3 Bed/Room Type: Standard ms3 Location: Intensive Care Unit(01/19/24 18:00) bd Room Assignment: 6-(01/19/24 18:00) bd Diagnosis - Supratherapeutic INR ms3 - Suicide attempt, initial encounter ms3 Forms: - Medication Reconciliation Form ms3 - SBAR form ms3 - Leadership Thank You Letter ms3 Critical care time excluding procedures: 16:40 Critical care time: Bedside Care: 30 minutes, Consultation: 10 minutes. Total time: 40 ms3 minutes Signatures: Dispatcher [employer] EDCharlee Conrad Marcus, DO DO ms3 Donya Kraft, JAH RN kc6 Roger Briones MD MD ec2 Corrections: (The following items were deleted from the chart) 18:00 16:45 Telemetry/MedSurg (Inpatient) ms3 bd 18:00 16:45 ms3 bd
[2024-01-19] MEDS: PROTHROMBIN COMPLEX CONCENTRATE (HUMAN) 500 UNIT VIAL IV ONE (17:00)
--- NOTE | 2024-01-19 17:22 | RAD REPORT ---
EXAM DESCRIPTION: CT - Head Brain Wo Cont - 01/19/2024 4:25 pm CLINICAL HISTORY: Xarelto Overdose COMPARISON: No comparisons TECHNIQUE: Noncontrast head CT images ad were obtained without IV contrast. Multiplanar reformats we re generated and reviewed. All CT scans are performed using dose optimization technique as appropriate and may include automated exposure control or mA/KV adjustment according to patient size. FINDINGS: No intracranial hemorrhage, mass, or edema. Ectopia of the cerebellar tonsils extending 7 mm below the level of the foramen magnum, maintaining rounded configuration. Midline structures are o therwise unremarkable. Normal ventricular caliber for age. Chaudhari-white matter differentiation is preserved, without evidence of acute infarct. No abnormal extra- axial fluid collections. Mastoid air cells and visualized portions of the paranasal sinuses are clear. No acute bony findings. IMPRESSION: No evidence of an acute intracranial process. Mild tonsillar ectopia.
[2024-01-19] MEDS ORDERED: ONDANSETRON 4 MG/2 ML VIAL IV PRN (17:23)
--- NOTE | 2024-01-19 17:57 | P.HP ---
Certification for Inpatient Patient admitted to: Inpatient With expected LOS: <2 Midnights <Lynnette Velez - Last Filed: 01/19/24 18:06> Patient History Date of Service: 01/19/24 Reason for admission: Overdose, suicide attempt History of Present Illness: 43-year-old female with a past medical history of GERD, anxiety, depression, disabled, pulmonary embolus, chronic anticoagulation, presents to the emergency room after overdose attempt. She reports she took 4 bottles of medications. after taking Pantoprazole 20 mg quantity 90 filled January 14, 2024; aripiprazole 10 mg tablets quantity 30 filled January 15, 2024; Xarelto 20 mg tablets quantity 90 filled January 14, 2024, trazodone 100 mg tablets quantity 30 filled January 15, 2024. Patient states she was feeling lonely and is tired of being alone. She reports being sad, missing her children, she reports disabled, lives alone, With no family interaction. she reports unsteady gait, dizziness, mild chest tightness. She is eating dinner, flat affect, answering question appropriately, denies current suicidal ideation. She report has a therapist that she sees via virtual visits on a monthly basis. She reports prior history attempt in 2023, 2 attempts at age 14 and 15. She reports previously being at [facility]. Plan to admit to ICU - Supratherapeutic INR, Suicide attempt, initial encounter Home medications list reviewed: Yes - Past Medical/Surgical History Diabetic: No -: Anxiety -: Depression -: Pulmonary embolism x 2 -: Chronic anticoagulation -: Tubal Psychosocial/ Personal History: Disabled, reports lives independently, reports sees monthly therapy - Social History Smoking Status: Current some day smoker Alcohol use: No CD- Drugs: No Caffeine use: Yes Place of Residence: Home <Lynnette Velez - Last Filed: 01/19/24 18:06> Date of Service: 01/20/24 <Rudolph Meraz - Last Filed: 01/20/24 21:39> Allergies Unable to Assess Allergy (Unverified 01/19/24 18:39) Home Medications: Aripiprazole [Abilify] 10 mg PO DAILY 01/19/24 Atorvastatin Calcium [Lipitor*] 10 mg PO DAILY 01/19/24 Buspirone HCl 15 mg PO TID 01/19/24 Gabapentin 100 mg PO PRN PRN 01/19/24 Lamotrigine [Lamotrigine ER] 50 mg PO DAILY 01/19/24 Pantoprazole [Protonix Tab*] 20 mg PO DAILY 01/19/24 Trazodone HCl 100 mg PO BEDTIME 01/19/24 Review of Systems PER HPI <Lynnette Velez - Last Filed: 01/19/24 18:06> Physical Examination - Physical Exam General: Alert, In no apparent distress, Oriented x3 HEENT: Atraumatic, Normocephalic Neck: Supple, 2+ carotid pulse no bruit Respiratory: Clear to auscultation bilaterally, Normal air movement Cardiovascular: No edema, Normal pulses, Regular rate/rhythm Gastrointestinal: Normal bowel sounds, Soft and benign Musculoskeletal: No clubbing, No swelling Integumentary: No rashes, No breakdown Neurological: Normal speech, Normal strength at 5/5 x4 extr - Studies Laboratory Data (last 24 hrs) 01/19/24 01/19/24 01/19/24 15:51 15:51 15:51 WBC 7.70 Hgb 13.7 Hct 39.6 Plt Count 207 PT 63.0 H INR 6.04 H* APTT 73.4 H Sodium 139 Potassium 3.6 BUN 10 Creatinine 1.32 H Glucose 109 H Magnesium 2.0 Total Bilirubin 0.9 AST 16 ALT 19 Alkaline Phosphatase 91 <Lynnette Velez - Last Filed: 01/19/24 18:06> - Studies Laboratory Data (last 24 hrs) 01/19/24 01/19/24 01/19/24 15:51 15:51 15:51 WBC 7.70 Hgb 13.7 Hct 39.6 Plt Count 207 PT 63.0 H INR 6.04 H* APTT 73.4 H Sodium 139 Potassium 3.6 BUN 10 Creatinine 1.32 H Glucose 109 H Magnesium 2.0 Total Bilirubin 0.9 AST 16 ALT 19 Alkaline Phosphatase 91 <Rudolph Meraz - Last Filed: 01/20/24 21:39> Assessment and Plan - Plan Assessment plan Supratherapeutic INR acute Suicide attempt, initial encounter acute Admit to ICU, telemetry, poison control, Behavioral health evaluation Labs, meds per poison control recommendation (Kcentra infusing now per poison control) 1:1 sitter/nurse for suicide precaution EKG 76 beats/min. Rhythm is regular. QRS [place] is Normal. CA interval is normal. QRS interval is normal. QT interval is normal. Clinical impression: Normal ECG BP 115 / 87; Pulse 88; Resp 16 S; Temp 98.2(O); Pulse Ox 96% on R/A; Weight 101.15 kg [place] (R); Height 5 ft. 9 in. (R); Pain 0/10; INR 6.04, 73.4 APTT Acute kidney injury unknown baseline BUN 52 creatinine 1.32, trend kidney function Gentle IV fluid Anxiety depression Tobacco use Educated on tobacco cessation Full code DVT SCDs Diet regular Disposition: Per psych facility recommendation Discharge Plan: Psychiatry - Advance Directives Does patient have a Living Will: No Does patient have a Durable POA for Healthcare: No - Code Status/Comfort Care Code Status: Full Code Critical Care: No Time Spent Managing Pts Care (In Minutes): 65 <Lynnette Velez - Last Filed: 01/19/24 18:06> - Plan Pt seen and examined. I agree with the note by the CUSTOMER RELATIONS SPECIALIST. Pt is a 43 yo female with past medical history of depression who presents in the ER s/p suicidal attempt by drug overdose. She took xarelto, abilify, protonix and trazodone. Pt was tired of being and feeling lone lonely. She took the [ills in order to end her life. She later decised to call EMS. upon admission in [facility] Er, lab studies show INR 6.04. ER physician called poison control center and they recommended obersvation in thehospital. We gave pt kcentra and trended INR ( 6.04). We also gave IVF for ANASTASIYA. Pt was a placed in a room witha bedside sitter. <Rudolph Meraz - Last Filed: 01/20/24 21:39>
[2024-01-19 19:51] VITALS: BMI 32.2
[2024-01-20 00:15] LABS: Absolute Basophils 0.1 K/uL (0-0.5); Absolute Eosinophils 0.1 K/uL (0-0.5); Absolute Lymphocytes (CBC) 2.5 K/uL (0.7-4.9); Absolute Monocytes 0.6 K/uL (0.1-1.3); Absolute Neutrophil 4.3 K/uL (1.8-8.0); Eosinophils % 1.6 % (0-4.4); Hematocrit 35.2 % (36.0-45.0); Hemoglobin 12.2 g/dL (12.0-15.0); Lymphocytes % 33.3 % (15.3-44.8); MCH 33.7 pg (27.0-35.0); MCHC 34.7 g/dL (32.0-36.0); MPV 8.6 fL (7.6-11.3); Monocytes % 7.8 % (3.3-12.3); Neutrophils % 56.3 % (41.7-73.7); Platelets 187 thou/uL (152-406); RBC Red Blood Cell Count 3.63 M/uL (3.86-4.86); Red Cell Distribution Width 14.1 % (12.1-15.2)
[2024-01-20 00:23] LABS: PT Prothrombin Time 29.9 SECONDS (9.5-12.5); Protime INR 2.8
[2024-01-20 00:36] LABS: Albumin 2.8 g/dL (3.4-5.0); Albumin/Globulin Ratio 0.9 (1.1-1.8); Anion Gap 7.2 mEq/L (5.0-15.0); Bilirubin Total 0.6 mg/dL (0.2-1.0); Globulin 3.2 g/dL (2.3-3.5); Potassium 3.2 mEq/L (3.5-5.1)
[2024-01-20] MEDS: POTASSIUM 25 MEQ EFFERV TAB PO ONE (01:22)
[2024-01-20 04:22] VITALS: O2SAT 96
[2024-01-20 04:54] LABS: Absolute Eosinophils 0.2 K/uL (0-0.5); Absolute Lymphocytes (CBC) 2.5 K/uL (0.7-4.9); Absolute Monocytes 0.7 K/uL (0.1-1.3); Absolute Neutrophil 4.8 K/uL (1.8-8.0); Basophils % 0.4 % (0-1.3); Eosinophils % 1.9 % (0-4.4); Hematocrit 35.7 % (36.0-45.0); Hemoglobin 12.4 g/dL (12.0-15.0); Lymphocytes % 30.6 % (15.3-44.8); MCH 33.4 pg (27.0-35.0); MCHC 34.7 g/dL (32.0-36.0); MCV 96.5 fL (80-100); MPV 8.7 fL (7.6-11.3); Monocytes % 8.6 % (3.3-12.3); Neutrophils % 58.5 % (41.7-73.7); Nucleated Red Blood Cells % 0.1 % (0-0); Platelets 193 thou/uL (152-406); Red Cell Distribution Width 14.1 % (12.1-15.2)
[2024-01-20 05:15] LABS: Albumin 2.9 g/dL (3.4-5.0); Albumin/Globulin Ratio 0.9 (1.1-1.8); Anion Gap 7.5 mEq/L (5.0-15.0); Bilirubin Total 0.5 mg/dL (0.2-1.0); Globulin 3.3 g/dL (2.3-3.5); Magnesium 2.1 mg/dL (1.6-2.4); PT Prothrombin Time 26.5 SECONDS (9.5-12.5); Potassium 4.5 mEq/L (3.5-5.1); Protein, Total 6.2 g/dL (6.4-8.2); Protime INR 2.47
[2024-01-20] MEDS ORDERED: NICOTINE 21 MG/PAT TD ONE (10:13)
[2024-01-20] MEDS: NICOTINE 21 MG/PAT TD SCH (10:15)
--- NOTE | 2024-01-20 10:57 | P.PN ---
Subjective Date of Service: 01/20/24 Chief Complaint: Overdose, suicide attempt Pt is resting comfortably in bed. She feels depressed but denies any suicidal ideation or plan. Her INR improved from 6.04 to 2.8 to 2.47 s/p kcenta. Waiting for psych eval for inpatient psych placement. No other complaints. Review of Systems General: Unremarkable Eyes: Unremarkable ENT: Unremarkable Respiratory: Unremarkable Cardiovascular: Unremarkable Gastrointestinal: Unremarkable Genitourinary: Unremarkable Musculoskeletal: Unremarkable Integumentary: Unremarkable Neurological: Unremarkable Lymphatics: Unremarkable Physical Examination - Vital Signs Temperature: 97.6 F Blood Pressure: 101/59 Pulse: 61 Respirations: 12 Pulse Ox (%): 96 - Physical Exam General: Alert, In no apparent distress, Oriented x3 HEENT: Atraumatic, Normocephalic, PERRLA Neck: Supple, 2+ carotid pulse no bruit Respiratory: Clear to auscultation bilaterally, Normal air movement Cardiovascular: No edema, Normal pulses, Regular rate/rhythm, Normal S1 S2 Capillary refill: <2 Seconds Gastrointestinal: Normal bowel sounds, Soft and benign, Non-distended Musculoskeletal: No clubbing, No swelling Integumentary: No rashes, No breakdown Neurological: Normal gait, Normal speech, Normal strength at 5/5 x4 extr, Abnormal affect Lymphatics: No axilla or inguinal lymphadenopathy - Studies Laboratory Data (last 24 hrs) 01/19/24 01/19/24 01/19/24 15:51 15:51 15:51 WBC 7.70 Hgb 13.7 Hct 39.6 Plt Count 207 PT 63.0 H INR 6.04 H* APTT 73.4 H Sodium 139 Potassium 3.6 BUN 10 Creatinine 1.32 H Glucose 109 H Magnesium 2.0 Total Bilirubin 0.9 AST 16 ALT 19 Alkaline Phosphatase 91 Assessment And Plan - Plan Acute Supratherapeutic INR: It has improved. INR trend is 2.47 <- 2.8 <- 6.04 s/p Kcenta. Will avoid AC. Suicide attempt: Pt feels depressed but denies any suicidal ideation or plan. Will continue bedside sitter. Pt is medically stable for discharge. Waiting for psych eval for inpatient placement. Acute kidney injury: cr is 1.08 <- 1.32. Continue IVF, avoid nephrotoxins and monitor renal function. Anxiety/depression: Continue home med Tobacco use: Pt was advised to quit smoking. Will give nicotine patch. Code: Full code DVT ppx: SCDs Disposition: Per psych facility recommendation
[2024-01-20 13:03] VITALS: BP 106/76; TEMP 97
--- NOTE | 2024-01-20 14:09 | EKG ---
Test Date: 2024-01-19 Test Time: 16:06:58 Deli/Bak[employer] Associate: ANA MARIA MEASUREMENT RESULTS: Intervals: Rate: 76 GA: 132 QRSD: 78 QT: 406 QTc: 456 [place]: P: 54 GA: 132 QRS: 7 T: 37 INTERPRETIVE STATEMENTS: Normal sinus rhythm Normal ECG Compared to ECG 12/24/2023 02:16:11 No significant changes Electronically Signed On 01-20-24 14:05:36 CDT by Rocael Stern
--- NOTE | 2024-01-20 16:29 | P.DS ---
Admission Date: 01/19/24 Discharge Date: 01/20/24 Disposition: TRANSFR TO OTHER-PSY/CD/REHAB Discharge Condition: GOOD Reason for Admission: Overdose, suicide attempt Brief History of Present Illness: 43-year-old female with a past medical history of GERD, anxiety, depression, disabled, pulmonary embolus, chronic anticoagulation, presents to the emergency room after overdose attempt. She reports she took 4 bottles of medications. after taking Pantoprazole 20 mg quantity 90 filled January 14, 2024; aripiprazole 10 mg tablets quantity 30 filled January 15, 2024; Xarelto 20 mg tablets quantity 90 filled January 14, 2024, trazodone 100 mg tablets quantity 30 filled January 15, 2024. Patient states she was feeling lonely and is tired of being alone. She reports being sad, missing her children, she reports disabled, lives alone, With no family interaction. she reports unsteady gait, dizziness, mild chest tightness. She is eating dinner, flat affect, answering question appropriately, denies current suicidal ideation. She report has a therapist that she sees via virtual visits on a monthly basis. She reports prior history attempt in December 2023, 2 attempts at age 14 and 15. She reports previously being at [facility]. Plan to admit to ICU - Supratherapeutic INR, Suicide attempt, initial encounter Hospital Course: Pt is a 43yo female with past medical history of GERD, anxiety, depression, disabled, pulmonary embolus, and chronic anticoagulation who presented in the ER after suicide attempt by medication overdose. She took 4 bottles of medications: Pantoprazole 20 mg quantity 90 filled January 14, 2024; aripiprazole 10 mg tablets quantity 30 filled January 15, 2024; Xarelto 20 mg tablets quantity 90 filled January 14, 2024, trazodone 100 mg tablets quantity 30 filled January 15, 2024. Patient said that she felt lonely and tired of being alone without any family member or friend to interact with. Pt decided to end her life by taking so many pills. Of note, pt sees her therapist virtually every month. The last suicide attempt was in December 2023. She also had 2 attempts at age 14 and 15. After overdosing on her medications, pt decided to call EMS to bring her to the ER . On admission, INR was 6.04. We admitted her in the ICU and gave Kcentra. INR improved from 6.04 -> 2.8 -> 2.47. Vital signs remained stable. Pt became medically stable and we consulted psych to evaluate her. Psych recommended inpatient psych placement. Pt was in NAD prior to discharge to inpatient psych. Vital Signs/Physical Exam: Temp Pulse Resp BP Pulse Ox 97.0 F 81 18 106/76 95 01/20/24 12:00 01/20/24 12:00 01/20/24 12:00 01/20/24 12:00 01/20/24 12:00 Laboratory Data at Discharge: WBC 8.30 thou/uL (4.3-10.9) 01/20/24 04:38 Hgb 12.4 g/dL (12.0-15.0) 01/20/24 04:38 Hct 35.7 % (36.0-45.0) L 01/20/24 04:38 Plt Count 193 thou/uL (152-406) 01/20/24 04:38 PT 26.5 SECONDS (9.5-12.5) H 01/20/24 04:38 INR 2.47 01/20/24 04:38 APTT 73.4 SECONDS (24.3-36.9) H 01/19/24 15:51 Sodium 140 mEq/L (136-145) 01/20/24 04:38 Potassium 4.5 mEq/L (3.5-5.1) D 01/20/24 04:38 BUN 12 mg/dL (7-18) 01/20/24 04:38 Creatinine 1.08 mg/dL (0.55-1.02) H 01/20/24 04:38 Glucose 103 mg/dL (74-106) 01/20/24 04:38 Magnesium 2.1 mg/dL (1.6-2.4) 01/20/24 04:38 Total Bilirubin 0.5 mg/dL (0.2-1.0) 01/20/24 04:38 AST 8 U/L (15-37) L 01/20/24 04:38 ALT 16 U/L (13-56) 01/20/24 04:38 Alkaline Phosphatase 76 U/L (45-117) 01/20/24 04:38 Home Medications: Aripiprazole [Abilify] 10 mg PO DAILY 01/19/24 Atorvastatin Calcium [Lipitor*] 10 mg PO DAILY 01/19/24 Buspirone HCl 15 mg PO TID 01/19/24 Gabapentin 100 mg PO PRN PRN 01/19/24 Lamotrigine [Lamotrigine ER] 50 mg PO DAILY 01/19/24 Pantoprazole [Protonix Tab*] 20 mg PO DAILY 01/19/24 Trazodone HCl 100 mg PO BEDTIME 01/19/24 Physician Discharge Instructions: Continue ad kimo activity. Go to Inpatient psych facility. Continue home me ds as prescribed. Follow up with PCP and Psychiatrist within 2 - 3 weeks. Diet: AHA Activity: Ad kimo Followup: Megan Mercado MD [Primary Care Provider] -
== END 2024-01-20 15:45 | DRG 918 ==
LOC: ER 15:22 → ERHOLD 17:22 → 3RD-ICU 19:27
PROVIDERS: ADMIT Hospitalist; ATTEND Hospitalist
DX: T47.1X2A Poisoning by other antacids and anti-gastric-secretion drugs, intentional self-harm, initial encounter (principal); N17.9 Acute kidney failure, unspecified; T43.592A Poisoning by other antipsychotics and neuroleptics, intentional self-harm, initial encounter; T45.512A Poisoning by anticoagulants, intentional self-harm, initial encounter; T43.212A Poisoning by selective serotonin and norepinephrine reuptake inhibitors, intentional self-harm, initial encounter; F32.A Depression, unspecified; F41.9 Anxiety disorder, unspecified; I25.2 Old myocardial infarction; K21.9 Gastro-esophageal reflux disease without esophagitis; F17.200 Nicotine dependence, unspecified, uncomplicated; R79.1 Abnormal coagulation profile; Z60.2 Problems related to living alone; Z88.5 Allergy status to narcotic agent; Z98.51 Tubal ligation status; Z79.01 Long term (current) use of anticoagulants; Z79.899 Other long term (current) drug therapy; Z86.711 Personal history of pulmonary embolism
CPT/HCPCS: 36415; 70450; 80048; 80053; 80076; 80143; 80179; 80307; 82077; 83735; 85025; 85610; 85730; 93005; 96374; 99285; J7168